=== PATIENT | female | born 1990 ===

== ENCOUNTER 2021-06-25 16:32 | Emergency (ER) | payer OTHER, SELFPAY ==
[2021-06-25] VITALS (9 sets, daily range): BP systolic 107–132; BP diastolic 53–74; PULSE 61–75; RESP 16–18; TEMP 36.6–37.2; O2SAT 100; BMI 26.1
[2021-06-25 18:35] LABS: Alanine Aminotransferase 8 U/L (0-31); Albumin Level 4.4 g/dL (3.5-5.0); Alkaline Phosphatase 80 U/L (39-117); Anion Gap 10 (12-20); Aspartate Amino Transferase 15 U/L (5-31); Bilirubin Total 0.6 mg/dL (0.0-1.0); Blood Urea Nitrogen 9 mg/dL (9-16); Calcium 9.3 mg/dL (8.4-10.2); Carbon Dioxide 26 mmol/L (22-29); Chloride 108 mmol/L (96-108); Creatinine Clr Calc Pharmacy 118.1; Estimated Glomerular Filt Rate > 60; Glucose Random 94 mg/dL (60-115); Potassium 3.9 mmol/L (3.3-5.1); Sodium 140 mmol/L (135-145); Total Protein 7.5 g/dL (6.5-8.0)
[2021-06-25 18:41] LABS: MANUAL DIFF FLAG SCAN; Monocytes Absolute Auto 0.4 X10*3/uL (0.1-1.2); Monocytes Percent Auto 9.5 % (2-11); SCAN SMEAR FLAG 1
[2021-06-25 18:43] LABS: Basophils Percent Auto 0.7 % (0-2); Eosinophils Absolute Auto 0.1 X10*3/uL (0.0-0.4); Eosinophils Percent Auto 2.2 % (0-4); Hematocrit 26.6 % (37-47); Imm Gran Abs Auto 0.01 X10*3/uL (0.00-0.03); Imm Gran Pct Auto 0.2 % (0.0-0.4); Lymphocytes Absolute Auto 1.5 X10*3/uL (1.2-4.9); Lymphocytes Percent Auto 31.7 % (20-40); Mean Corpuscular HGB Conc 25.6 g/dl (31.0-35.0); Mean Corpuscular Hemoglobin 14.9 pg (27.0-33.0); Neutrophils Absolute Auto 2.6 X10*3/uL (2.0-8.3); Neutrophils Percent Auto 55.7 % (45-73); PLT CLUMP 1; Red Blood Count 4.55 X10*6/uL (4.20-5.50); Red Cell Distribution Width 19.6 % (11.0-16.0)
[2021-06-25 18:47] LABS: Mean Corpuscular Volume 58.5 fL (80-98)
[2021-06-25 18:50] LABS: PLT ABN DIST 1
[2021-06-25 18:51] LABS: Hemoglobin 6.8 g/dl (12.0-16.0)
[2021-06-25 19:05] LABS: Platelet Count 226 X10*3/uL (160-400); SLIDE REVIEW VERIFIED; White Blood Count 4.6 X10*3/uL (4.8-10.8)
--- NOTE | 2021-06-25 19:08 | ED.GENADULT ---
HPI - General Adult General Chief complaint: General Medical Stated complaint: ?Low iron Time Seen by Provider: 06/25/21 19:08 Source: patient Mode of arrival: ambulatory Limitations: no limitations History of Present Illness HPI narrative: History of chronic iron deficiency anemia secondary to heavy menstrual bleeding history of blood transfusion in the past taking iron pills comes here for last few days been feeling very weak and dizzy with palpitation no chest pain feels short of breath on exertion no rectal bleeding Related Data Previous Rx's Medication Instructions Recorded ferrous sulfate 324 mg (65 mg 324 mg PO BID #60 tab 06/26/21 iron) tablet,delayed release Allergies Allergy/AdvReac Type Severity Reaction Status Date / Time No Known Allergies Allergy Verified 06/25/21 17:53 Review of Systems Review of Systems: Yes all other systems are reviewed and are negative [facility] Past Medical History Medical History (Updated 06/26/21 @ 00:48 by Ac Ocampo MD) Dysfunctional uterine bleeding Iron deficiency anemia Social History Social History Advance Directives: No Advance Directives Information Provided: No Physical Exam Vital Signs: Vital Signs: Last Vital Signs Temp 98.5 F 06/25/21 23:30 Pulse 68 06/25/21 23:30 Resp 18 06/25/21 23:30 BP 107/53 L 06/25/21 23:30 Pulse Ox 100 06/25/21 23:27 Body Mass Index 26.1 Appearance: Alert. Oriented X3. No acute distress. Eyes: Pallor++ ENT: Pharynx normal. Oral Mucosa moist Neck: Normal inspection. Neck supple. CVS: Normal heart rate and rhythm. Pulses normal. Respiratory: No respiratory distress. Equal air entry bilateral, no wheezing/rales/rhonchi Abdomen: Soft and nontender. Bowel sounds are present, no mass palpable, no CVA tenderness Skin: Skin warm and dry. Normal skin color. Normal skin turgor. Extremities: No lower extremity edema. No calf tenderness Neuro: Oriented X 3. Medical Decision Making MDM Narrative Medical decision making narrative: Patient with significant anemia secondary to DUB and received blood pressure in the past was given 1 unit of blood transfusion in the ER advised to follow-up with PUMPING SUPERVISOR and expansion joint finisher also advised to increase the dose of iron tablet twice daily and be more compliant to medication Lab Data Lab results reviewed: Yes I reviewed the patient's lab results. Result diagrams: 06/25/21 18:13 06/25/21 18:13 Labs: Lab Results 06/25/21 06/25/21 06/25/21 Range/Units 18:13 18:13 20:01 WBC 4.6 L (4.8-10.8) X10*3/uL RBC 4.55 (4.20-5.50) X10*6/uL Hgb 6.8 L* (12.0-16.0) g/dl Hct 26.6 L (37-47) % MCV 58.5 L (80-98) fL MCH 14.9 L (27.0-33.0) pg MCHC 25.6 L (31.0-35.0) g/dl RDW 19.6 H (11.0-16.0) % Plt Count 226 (160-400) X10*3/uL MPV TNP Immature Gran % (Auto) 0.2 (0.0-0.4) % Neut % (Auto) 55.7 (45-73) % Lymph % (Auto) 31.7 (20-40) % [place] % (Auto) 9.5 (2-11) % Eos % (Auto) 2.2 (0-4) % Baso % (Auto) 0.7 (0-2) % Lymph # (Auto) 1.5 (1.2-4.9) X10*3/uL [place] # (Auto) 0.4 (0.1-1.2) X10*3/uL Eos # (Auto) 0.1 (0.0-0.4) X10*3/uL Baso # (Auto) 0.0 (0.0-0.2) X10*3/uL Abs Immat Gran (auto) 0.01 (0.00-0.03) X10*3/uL Absolute Neuts (auto) 2.6 (2.0-8.3) X10*3/uL Absolute Nucleated RBC 0.000 (0.0-0.012) X10*3/uL Nucleated RBC % (auto) 0.0 (0.0-0.2) /100WBC Smear Tech's Comments VERIFIED Sodium 140 (135-145) mmol/L Potassium 3.9 (3.3-5.1) mmol/L Chloride 108 (96-108) mmol/L Carbon Dioxide 26 (22-29) mmol/L Anion Gap 10 L (12-20) BUN 9 (9-16) mg/dL Creatinine 0.67 (0.5-1.4) mg/dL Estim Creat Clear Calc 118.1 Estimated GFR > 60 Random Glucose 94 (60-115) mg/dL Calcium 9.3 (8.4-10.2) mg/dL Iron 14 L (30-160) mcg/dL TIBC 515 H (228-428) mcg/dL % Saturation 3 L (15-50) % Unsat Iron Binding 501 ug/dL Ferritin < 1 L (10-122) ng/mL Total Bilirubin 0.6 (0.0-1.0) mg/dL AST 15 (5-31) U/L ALT 8 (0-31) U/L Alkaline Phosphatase 80 (39-117) U/L Total Protein 7.5 (6.5-8.0) g/dL Albumin 4.4 (3.5-5.0) g/dL Blood Type O Positive Antibody Screen NEGATIVE Crossmatch See Detail Discharge Plan Discharge Clinical Impression: Severe anemia Patient Disposition: Home, Self-Care Instructions: Anemia (ED) Additional Instructions: Take your iron tablets daily As prescribed follow-up with honing machine operator and expansion joint finisher as advised Follow up with PCP [place] raudel tabletas de romana a diario Seguimiento prescrito con un ginec?logo y un hemat?logo seg?n las recomendaciones Seguimiento con PCP Prescriptions: New ferrous sulfate 324 mg (65 mg iron) tablet,delayed release (DR/EC) 324 mg PO BID Qty: 60 RF: 0 Referrals: Mariya Hudson MD [Physician] - 1 week Ajith Newell MD [Physician] - 1 week Print Language: Turkmen
[2021-06-25 19:47] LABS: Iron 14 mcg/dL (30-160); Percent Iron Saturation 3 % (15-50); Total Iron Binding Capacity 515 mcg/dL (228-428); Unsaturated Iron Binding 501 ug/dL
[2021-06-25 20:10] LABS: Ferritin < 1 ng/mL (10-122)
--- NOTE | 2021-06-25 23:38 | PC.NURSE ---
pt completed her unit of PRB cells with no reaction. infusion completed at 2230 vitals as follows. 98.5 oral, hr 68 nsr, 18 regular bp 107/53/81 left arm supine. pt lungs clear no s/s of resp distress. skin color improved. pt is awake and talking in full sentences.
[2021-06-25] MEDS: Ferrous Sulfate 324 MG TABLET.DR PO (23:51)
[2021-06-26 01:01] VITALS: BP 125/73; PULSE 69; RESP 18; TEMP 37.1; O2SAT 100
== END 2021-06-26 01:10 | disposition home or self-care (01) ==
PROVIDERS: Emergency Provider Internal Medicine
DX: D50.0 Iron deficiency anemia secondary to blood loss (chronic) (principal); N92.0 Excessive and frequent menstruation with regular cycle; Z79.899 Other long term (current) drug therapy
CPT/HCPCS: 36415; 36430; 80053; 82728; 83540; 85025; 86850; 86900; 86901; 86923; 99284; 99285; P9016

== ENCOUNTER 2021-06-28 15:17 | Outpatient (REF) | payer OTHER, SELFPAY ==
[2021-06-28 16:51] LABS: Hemoglobin 7.7 g/dl (12.0-16.0)
[2021-06-28 16:52] LABS: Hematocrit 28.4 % (37-47); Mean Corpuscular HGB Conc 27.1 g/dl (31.0-35.0); Mean Corpuscular Hemoglobin 16.7 pg (27.0-33.0); Red Blood Count 4.62 X10*6/uL (4.20-5.50)
[2021-06-28 16:55] LABS: Mean Corpuscular Volume 61.5 fL (80-98); PLT ABN DIST 1
[2021-06-28 17:15] LABS: Platelet Count 165 X10*3/uL (160-400)
[2021-06-28 17:43] LABS: HCG Quantitative < 2 mIU/mL
[2021-06-28 18:15] LABS: TSH reflex Free T4 1.73 uIU/mL (0.32-4.0)
[2021-06-29 02:12] LABS: CT PCR NOT DETECTED (Not Detect.); NG PCR NOT DETECTED (Not Detect.)
== END 2021-06-28 15:18 | disposition home or self-care (01) ==
LOC: HO.LAB 15:17
PROVIDERS: Visit Provider Obstetrics & Gynecology
DX: Z01.419 Encounter for gynecological examination (general) (routine) without abnormal findings (principal); Z11.3 Encounter for screening for infections with a predominantly sexual mode of transmission; N93.9 Abnormal uterine and vaginal bleeding, unspecified; D64.9 Anemia, unspecified
CPT/HCPCS: 36415; 84443; 84702; 85027; 87491; 87591; 88142; 99202

== ENCOUNTER 2021-07-04 16:10 | Emergency (ER) | payer OTHER, SELFPAY ==
--- NOTE | 2021-07-04 | ECG_ITS ---
Test Reason : sob Blood Pressure : / mmHG Vent. Rate : 087 BPM Atrial Rate : 087 BPM P-R Int : 164 ms QRS Dur : 090 ms QT Int : 376 ms P-R-T Axes : 051 046 036 degrees QTc Int : 452 ms Normal sinus rhythm Normal ECG No previous ECGs available Referred By: Generic ED Physician Electronically Signed By:ELIAZAR BLANC MD
--- NOTE | ~2021-07-04 | XR_ITS ---
EXAMINATION: XR CHEST CLINICAL INFORMATION: Shortness of breath. Chest tightness. COMPARISON: None TECHNIQUE: PA view of the chest was obtained. FINDINGS: Lungs are clear. No consolidation, pneumothorax, or pleural effusion. Cardiac and mediastinal contours are normal. Prominent vasculature is unremarkable. No acute osseous findings. XR/XR chest 1V IMPRESSION: Normal chest radiograph.
[2021-07-04 17:05] VITALS: BP 140/98; PULSE 98; RESP 17; TEMP 36.9; O2SAT 100; BMI 25.6
[2021-07-04 17:55] LABS: MANUAL DIFF FLAG NO
[2021-07-04 17:59] LABS: Basophils Percent Auto 0.4 % (0-2); Eosinophils Percent Auto 0.6 % (0-4); Hematocrit 30.7 % (37-47); Hemoglobin 8.5 g/dl (12.0-16.0); Imm Gran Abs Auto 0.01 X10*3/uL (0.00-0.03); Imm Gran Pct Auto 0.2 % (0.0-0.4); Lymphocytes Absolute Auto 0.5 X10*3/uL (1.2-4.9); Lymphocytes Percent Auto 10.1 % (20-40); Mean Corpuscular HGB Conc 27.7 g/dl (31.0-35.0); Mean Corpuscular Hemoglobin 17.2 pg (27.0-33.0); Mean Corpuscular Volume 62.3 fL (80-98); Monocytes Absolute Auto 0.6 X10*3/uL (0.1-1.2); Monocytes Percent Auto 11.5 % (2-11); Neutrophils Percent Auto 77.2 % (45-73); Platelet Count 183 X10*3/uL (160-400); Red Blood Count 4.93 X10*6/uL (4.20-5.50); Red Cell Distribution Width 26.7 % (11.0-16.0); White Blood Count 5.2 X10*3/uL (4.8-10.8)
[2021-07-04 18:10] LABS: Anion Gap 12 (12-20); Blood Urea Nitrogen 10 mg/dL (9-16); Calcium 9.1 mg/dL (8.4-10.2); Carbon Dioxide 22 mmol/L (22-29); Chloride 109 mmol/L (96-108); Creatinine Clr Calc Pharmacy 100.9; Estimated Glomerular Filt Rate > 60; Glucose Random 71 mg/dL (60-115); Potassium 3.3 mmol/L (3.3-5.1); Sodium 140 mmol/L (135-145)
--- NOTE | 2021-07-04 21:45 | ED.GENADULT ---
HPI - General Adult General Chief complaint: General Medical Stated complaint: reaction to second shot Time Seen by Provider: 07/04/21 21:38 Source: patient Mode of arrival: ambulatory Limitations: no limitations History of Present Illness HPI narrative: Patient comes emergency room complaining of increased weakness, anxiety like sensation, nausea, chest tightness which occurred yesterday after having her COVID shot #2. Patient states that all her symptoms resolved yesterday fairly quickly, complaining of chronic weakness However, patient states that she is known to be anemic and she feels tired at baseline. Patient has not had any chest pain, shortness of breath, no palpitations, facial paresthesias, any new symptoms since yesterday. Patient states that she feels at baseline today. Related Data Previous Rx's Medication Instructions Recorded ferrous sulfate 324 mg (65 mg 324 mg PO BID #60 tab 06/26/21 iron) tablet,delayed release desogestrel 0.15 mg-ethinyl 1 tab PO DAILY 28 Days #28 tab 06/28/21 estradiol 0.03 mg tablet (Apri) Allergies Allergy/AdvReac Type Severity Reaction Status Date / Time No Known Allergies Allergy Verified 07/04/21 17:05 Review of Systems Review of Systems: Constitutional : No Weight loss, No Fever, No Chills, No Night Sweats, No Fatigue, No Malaise ENT/Mouth : No Hearing loss, No Ear Pain, No Nasal Congestion, No Sinus Pain, No Hoarseness, No sore throat, No Rhinorrhea, No Swallowing Difficulty Eyes: No Eye Pain, No Swelling, No Redness, No Foreign Body, No Discharge, No Vision Changes Cardiovascular : No Chest Pain, No SOB, No Dyspnea on Exertion, resolved short episode of palpitations after her COVID shot, now resolved Respiratory : No Cough, No Sputum, No Wheezing, No Smoke Exposure, No Dyspnea Gastrointestinal : No Nausea, No Vomiting, No Diarrhea, No Constipation, No abdominal Pain, No Hematochezia, No Melena Genitourinary : no irregular bleeding, No Dysuria, No Urinary Frequency, No Hematuria, No Urinary Incontinence, No Urgency, No Flank Pain, No Urinary Flow Changes, No Hesitancy Musculoskeletal : No joint pain, No Myalgias, No Joint Swelling Skin : No Skin Lesions, No rash Neuro : No Weakness, No Numbness, No Paresthesias, No Loss of Consciousness, No Dizziness, No Headache Psych : No Anxiety/Panic, No Depression, No SI/HI/AH/VH, No Social Issues, Heme/Lymph: No Bruising, No Bleeding,No Lymphadenopathy Endocrine : No Polyuria, No Polydipsia, No Temperature Intolerance [facility] Past Medical History Medical History Dysfunctional uterine bleeding Iron deficiency anemia Surgical History Hx of section Tubal ligation status Family History Family History Maternal Grandfather Leukemia Social History Social History Patient Tobacco Use Status: Never used Tobacco Advance Directives: No Advance Directives Information Provided: No Patient : No Physical Exam Vital Signs: Vital Signs: Last Vital Signs Temp 98.4 F 07/04/21 17:05 Pulse 98 07/04/21 17:05 Resp 17 07/04/21 17:05 BP 140/98 H 07/04/21 17:05 Pulse Ox 100 07/04/21 17:05 Body Mass Index 25.6 Const: Other: Appearance: Alert. Oriented X3. No acute distress. Eyes: Pupils equal, round and reactive to light. ENT: Pharynx normal. Neck: Normal inspection. Neck supple. No lymph nodes noted. No crepitus CVS: Normal heart rate and rhythm. Pulses normal. Normal S1 and S2 Respiratory: No respiratory distress. Breath sounds normal. No Wheezing. No rales Abdomen: Soft and nontender. No rigidity. No distention. good BS x4 Skin: Skin warm and dry. Normal skin color. Normal skin turgor. Extremities: No lower extremity edema.No Lacerations. No Rash Neuro: Oriented X 3. No motor deficit. No sensory deficit. Moving all extermities. No slurred speech. Course Course Course Narrative: I discussed the labs with the patient, patient's hemoglobin is 8.5, higher than when she came in last week with transfusion. Wells criteria for PE score is 0 Patient likely had a vasovagal reaction versus short side effect. Patient's symptoms resolved yesterday, patient has been a baseline all day today. No new symptoms. Medical Decision Making Lab Data Result diagrams: 07/04/21 17:51 07/04/21 17:51 Labs: Lab Results 07/04/21 07/04/21 Range/Units 17:51 17:51 WBC 5.2 (4.8-10.8) X10*3/uL RBC 4.93 (4.20-5.50) X10*6/uL Hgb 8.5 L (12.0-16.0) g/dl Hct 30.7 L (37-47) % MCV 62.3 L (80-98) fL MCH 17.2 L (27.0-33.0) pg MCHC 27.7 L (31.0-35.0) g/dl RDW 26.7 H (11.0-16.0) % Plt Count 183 (160-400) X10*3/uL MPV TNP Immature Gran % (Auto) 0.2 (0.0-0.4) % Neut % (Auto) 77.2 H (45-73) % Lymph % (Auto) 10.1 L (20-40) % [place] % (Auto) 11.5 H (2-11) % Eos % (Auto) 0.6 (0-4) % Baso % (Auto) 0.4 (0-2) % Lymph # (Auto) 0.5 L (1.2-4.9) X10*3/uL [place] # (Auto) 0.6 (0.1-1.2) X10*3/uL Eos # (Auto) 0.0 (0.0-0.4) X10*3/uL Baso # (Auto) 0.0 (0.0-0.2) X10*3/uL Abs Immat Gran (auto) 0.01 (0.00-0.03) X10*3/uL Absolute Neuts (auto) 4.0 (2.0-8.3) X10*3/uL Absolute Nucleated RBC 0.000 (0.0-0.012) X10*3/uL Nucleated RBC % (auto) 0.0 (0.0-0.2) /100WBC Sodium 140 (135-145) mmol/L Potassium 3.3 (3.3-5.1) mmol/L Chloride 109 H (96-108) mmol/L Carbon Dioxide 22 (22-29) mmol/L Anion Gap 12 (12-20) BUN 10 (9-16) mg/dL Creatinine 0.72 (0.5-1.4) mg/dL Estim Creat Clear Calc 100.9 Estimated GFR > 60 Random Glucose 71 (60-115) mg/dL Calcium 9.1 (8.4-10.2) mg/dL Discharge Plan Discharge Clinical Impression: Drug side effects Patient Disposition: Home, Self-Care Instructions: Weakness (ED), Fatigue (ED) Additional Instructions: Please follow-up with your primary care physician tomorrow. If you have any worsening or new symptoms, please return to the emergency room or call 911 Prescriptions: No Action ferrous sulfate 324 mg (65 mg iron) tablet,delayed release (DR/EC) 324 mg PO BID Qty: 60 RF: 0 desogestrel-ethinyl estradiol [Apri] 0.15-0.03 mg tablet 1 tab PO DAILY 28 Days Qty: 28 RF: 2
== END 2021-07-04 22:07 | disposition home or self-care (01) ==
PROVIDERS: Emergency Provider Emergency Medicine
DX: R53.1 Weakness (principal); R11.0 Nausea; R07.89 Other chest pain; T50.B95A Adverse effect of other viral vaccines, initial encounter; Y92.9 Unspecified place or not applicable; D50.9 Iron deficiency anemia, unspecified
CPT/HCPCS: 36415; 71045; 80048; 85025; 93005; 99283

== ENCOUNTER 2021-07-13 14:05 | Outpatient (REF) | payer OTHER, SELFPAY ==
--- NOTE | ~2021-07-13 | US_ITS ---
EXAMINATION: US PELVIS CLINICAL INFORMATION: Abnormal uterine and vaginal bleeding COMPARISON: None TECHNIQUE: Ultrasound of the pelvis is performed using both transabdominal and transvaginal transducers along with Doppler. Transvaginal imaging is performed due to inadequate visualization transabdominally. FINDINGS: The uterus is retroverted and measures 8.3 x 5 x 5.4 cm in dimension. There may be an arcuate type uterus. Endometrial thickness is normal measuring 1.4 cm. The ovaries are normal. The right ovary measures 2.9 x 1.6 x 1.6 cm. The left ovary measures 3 x 1.7 x 2.2 cm. There is a small to moderate amount of fluid in the pelvis. 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 Normal thickness endometrium. Normal-appearing ovaries.
== END 2021-07-13 14:06 | disposition home or self-care (01) ==
LOC: HO.US 14:05
PROVIDERS: Visit Provider Obstetrics & Gynecology
DX: N93.9 Abnormal uterine and vaginal bleeding, unspecified (principal)
CPT/HCPCS: 76830; 76856

== ENCOUNTER 2021-07-27 14:14 | Outpatient (REF) | payer OTHER, SELFPAY | END 2021-07-27 14:15 | disposition home or self-care (01) | LOC: HO.LAB 14:14 | PROVIDERS: Visit Provider Obstetrics & Gynecology | DX: R87.612 Low grade squamous intraepithelial lesion on cytologic smear of cervix (LGSIL) (principal); N93.9 Abnormal uterine and vaginal bleeding, unspecified; D64.9 Anemia, unspecified; Q51.810 Arcuate uterus | CPT/HCPCS: 57454; 88305; 88342; 88360; 99212 ==

== ENCOUNTER → 2021-08-09 15:27 | Outpatient (BNVA) | payer OTHER, SELFPAY | PROVIDERS: Visit Provider Obstetrics & Gynecology | DX: N87.0 Mild cervical dysplasia (principal); N93.9 Abnormal uterine and vaginal bleeding, unspecified | CPT/HCPCS: 99212 ==

== ENCOUNTER → 2021-08-28 14:09 | Outpatient (BNV) | payer OTHER, SELFPAY | PROVIDERS: Referring Provider Obstetrics & Gynecology; Visit Provider Internal Medicine Medical Oncology | DX: D50.9 Iron deficiency anemia, unspecified (principal) | CPT/HCPCS: 99203; 99213; 99214 ==

== ENCOUNTER 2021-09-05 09:24 | Emergency (ER) | payer OTHER, SELFPAY ==
[2021-09-05 09:36] VITALS: BP 123/87; PULSE 78; RESP 17; TEMP 36.6; O2SAT 100; BMI 24.0
[2021-09-05 09:56] LABS: Eosinophils Absolute Auto 0.1 X10*3/uL (0.0-0.4); Eosinophils Percent Auto 2.8 % (0-4); Hemoglobin 8.2 g/dl (12.0-16.0); Imm Gran Abs Auto 0.01 X10*3/uL (0.00-0.03); Imm Gran Pct Auto 0.3 % (0.0-0.4); MANUAL DIFF FLAG SCAN; Mean Corpuscular Volume 66.4 fL (80.0-98.0); SCAN SMEAR FLAG 1
[2021-09-05 09:58] LABS: Hematocrit 29.8 % (37.0-47.0); Lymphocytes Percent Auto 24.2 % (20-40); Mean Corpuscular HGB Conc 27.5 g/dl (31.0-35.0); Mean Corpuscular Hemoglobin 18.3 pg (27.0-33.0); Monocytes Absolute Auto 0.3 X10*3/uL (0.1-1.2); Monocytes Percent Auto 8.1 % (2-11); Neutrophils Absolute Auto 2.5 x10*3/uL (2.0-8.3); Neutrophils Percent Auto 63.6 % (45-73); Platelet Count 168 X10*3/uL (160-400); Red Blood Count 4.49 X10*6/uL (4.20-5.50); Red Cell Distribution Width 20.6 % (11.0-16.0)
[2021-09-05 09:59] LABS: PLT ABN DIST 1
[2021-09-05 10:20] LABS: Anion Gap 8 (12-20); Blood Urea Nitrogen 14 mg/dL (9-16); Calcium 8.8 mg/dL (8.4-10.2); Carbon Dioxide 25 mmol/L (22-29); Chloride 109 mmol/L (96-108); Creatinine Clr Calc Pharmacy 105.4; Estimated Glomerular Filt Rate > 60; Glucose Random 106 mg/dL (60-115); Potassium 4.5 mmol/L (3.3-5.1); Sodium 137 mmol/L (135-145)
--- NOTE | 2021-09-05 13:14 | ED_ITS ---
HPI - General Adult General Chief complaint: General Medical Stated complaint: Anemia Time Seen by Provider: 09/05/21 13:10 Source: patient and certified court interpreter Mode of arrival: ambulatory Limitations: no limitations History of Present Illness MD complaint: anemia, fatigue Onset (ago): week(s) (4) Severity: moderate Quality: dull Relieving factors: other (exertion) Exacerbating factors: none Associated symptoms: loss of appetite and malaise Treatments prior to arrival: other (has seen hematology and OBGYN fo r this) Related Data Previous Rx's Medication Instructions Recorded desogestrel 0.15 mg-ethinyl 1 tab PO DAILY 28 Days #28 tab 06/28/21 estradiol 0.03 mg tablet (Apri) L norgest/E estradiol-E estrad 1 tab PO DAILY 84 Days #84 ea 07/27/21 0.15 mg-30 mcg (84)/10 mcg(7) tabs,3mos (Seasonique) Allergies Allergy/AdvReac Type Severity Reaction Status Date / Time No Known Allergies Allergy Verified 08/28/21 14:52 Review of Systems Review of Systems: Constitutional : No Weight loss, No Fever, No Chills, pos Fatigue, No Malaise ENT/Mouth : No sore throat, No Rhinorrhea Eyes: No Eye Pain, No Swelling, No Redness Cardiovascular : No Chest Pain, No SOB, No Dyspnea on Exertion, No Orthopnea, No Edema, No Palpitations Respiratory : No Cough, No Sputum, No Wheezing Gastrointestinal : No Nausea, No Vomiting, No Diarrhea, No Constipation, No abdominal Pain, No Hematochezia, No Melena Genitourinary : No Dysuria, No Urinary Frequency, No Hematuria, pos scant dark bleeding Musculoskeletal : No joint pain, No Myalgias, No Joint Swelling Skin : No Skin Lesions, No rash Neuro : pos Weakness, No Numbness, No Dizziness, No Headache Psych : No Anxiety/Panic, No Depression Heme/Lymph: No Bruising, No Bleeding,No Lymphadenopathy Endocrine : No Polyuria, No Polydipsia All other systems reviewed and are negative PMFSH Past Medical History Attestation statement: The following information was validated with the patient. Medical History Dysfunctional uterine bleeding Iron deficiency anemia Surgical History Hx of section Tubal ligation status Family History Family History Maternal Grandfather Leukemia Social History Social History Alcohol intake: current Alcohol intake frequency: a few times a month Patient Tobacco Use Status: Never used Tobacco Substance Use Type: Marijuana Advance Directives: No Advance Directives Information Provided: Yes Patient : No Physical Exam Vital Signs: Vital Signs: Last Vital Signs Temp 97.9 F 09/05/21 13:27 Pulse 75 09/05/21 13:27 Resp 18 09/05/21 13:27 BP 132/68 09/05/21 13:27 Pulse Ox 100 09/05/21 13:27 BMI result Body Mass Index 24.0 Appearance: Alert. Oriented X3. No acute distress. Eyes: Pupils equal, round and reactive to light. ENT: Pharynx normal. Neck: Normal inspection. Neck supple. CVS: Normal heart rate and rhythm. Pulses normal. Respiratory: No respiratory distress. Breath sounds normal. Abdomen: Soft and non-tender. Skin: Skin warm and dry. pale skin color. Normal skin turgor. Extremities: No lower extremity edema. No calf ttp Neuro: Oriented X 3. No motor deficit. No sensory deficit. Course Course Course Narrative: cannot give IV Fe here at this time per pharmacy - H/H at her baseline won't take oral Fe will need to call her dressmaker helper Medical Decision Making MDM Narrative Medical decision making narrative: 30 yo male with hx of Fe deficiency anemia followed by OB and hematology here with c/o weakness and fatigue - at this time had appointment plan for IV dextran infusion after appointment 08/28 - at this time she has not had her appointment scheduled will need repeat H/H covid test and will discuss possible infusion here before the holiday. Lab Data Result diagrams: 09/05/21 09:50 09/05/21 09:49 Labs: Lab Results 09/05/21 09/05/21 Range/Units 09:49 09:50 WBC 4.0 L (4.8-10.8) X10*3/uL RBC 4.49 (4.20-5.50) X10*6/uL Hgb 8.2 L (12.0-16.0) g/dl Hct 29.8 L (37.0-47.0) % MCV 66.4 L (80.0-98.0) fL MCH 18.3 L (27.0-33.0) pg MCHC 27.5 L (31.0-35.0) g/dl RDW 20.6 H (11.0-16.0) % Plt Count 168 D (160-400) X10*3/uL MPV Not Reportable Immature Gran % (Auto) 0.3 (0.0-0.4) % Neut % (Auto) 63.6 (45-73) % Lymph % (Auto) 24.2 (20-40) % [place] % (Auto) 8.1 (2-11) % Eos % (Auto) 2.8 (0-4) % Baso % (Auto) 1.0 (0-2) % Lymph # (Auto) 1.0 L (1.2-4.9) X10*3/uL [place] # (Auto) 0.3 (0.1-1.2) X10*3/uL Eos # (Auto) 0.1 (0.0-0.4) X10*3/uL Baso # (Auto) 0.0 (0.0-0.2) X10*3/uL Abs Immat Gran (auto) 0.01 (0.00-0.03) X10*3/uL Absolute Neuts (auto) 2.5 (2.0-8.3) x10*3/uL Absolute Nucleated RBC 0.000 (0.0-0.012) X10*3/uL Nucleated RBC % (auto) 0.0 (0.0-0.2) /100WBC Smear Tech's Comments Not Reportable Sodium 137 (135-145) mmol/L Potassium 4.5 (3.3-5.1) mmol/L Chloride 109 H (96-108) mmol/L Carbon Dioxide 25 (22-29) mmol/L Anion Gap 8 L (12-20) BUN 14 (9-16) mg/dL Creatinine 0.68 (0.5-1.4) mg/dL Estim Creat Clear Calc 105.4 Estimated GFR > 60 Random Glucose 106 (60-115) mg/dL Calcium 8.8 D (8.4-10.2) mg/dL Discharge Plan Discharge Clinical Impression: Iron deficiency anemia Patient Disposition: Home, Self-Care Instructions: Iron Deficiency Anemia (ED) Additional Instructions: return to ED for any worsening symptoms or concerns Prescriptions: No Action desogestrel-ethinyl estradiol [Apri] 0.15-0.03 mg tablet 1 tab PO DAILY 28 Days Qty: 28 RF: 2 L norgest/e.estradiol-e.estrad [Seasonique] 0.15 mg-30 mcg (84)/10 mcg (7) tablets,dose pack,3 month 1 tab PO DAILY 84 Days Qty: 84 RF: 0 Referrals: Mariya Hudson MD [Physician] - 1 day Print Language: Vietnamese
[2021-09-05 13:27] VITALS: BP 132/68; PULSE 75; RESP 18; TEMP 36.6; O2SAT 100
[2021-09-05 14:08] LABS: COVID-19 Test Negative (Negative)
[2021-09-05 14:09] VITALS: BP 127/75; PULSE 87; RESP 16; TEMP 37; O2SAT 100
== END 2021-09-05 14:41 | disposition home or self-care (01) ==
PROVIDERS: Emergency Provider Emergency Medicine
DX: D50.9 Iron deficiency anemia, unspecified (principal); Z20.822 Contact with and (suspected) exposure to COVID-19
CPT/HCPCS: 36415; 80048; 85025; 87635; 99283; 99284

== ENCOUNTER → 2021-09-28 11:53 | Outpatient (BNVA) | payer OTHER, SELFPAY | PROVIDERS: Visit Provider Obstetrics & Gynecology | DX: N93.9 Abnormal uterine and vaginal bleeding, unspecified (principal) | CPT/HCPCS: 99212 ==

== ENCOUNTER 2021-12-13 08:06 | Outpatient (REF) | payer OTHER, SELFPAY | END 2021-12-13 08:07 | disposition home or self-care (01) | LOC: HO.MDS 08:06 | PROVIDERS: Visit Provider Internal Medicine Medical Oncology | DX: D50.9 Iron deficiency anemia, unspecified (principal) | CPT/HCPCS: 96365; 96366; J1200; J1750; Q0163 ==

== ENCOUNTER 2022-01-23 11:43 | Outpatient (REF) | payer OTHER, SELFPAY ==
--- NOTE | ~2022-01-23 | MR_ITS ---
EXAMINATION: MR BRAIN WITHOUT CONTRAST CLINICAL INFORMATION: Headaches. COMPARISON: None. TECHNIQUE: Multiplanar, multisequence imaging of the brain was performed without contrast. FINDINGS: No diffusion abnormalities are identified to suggest an acute or subacute infarct. The ventricles are normal in size. No mass effect or midline shift is seen. No brain parenchymal signal abnormality is noted. No extra-axial fluid collections are seen. The brainstem and cerebellum are normal. The gradient refocused acquisition is normal. The craniovertebral junction, marrow signal, and midline structures are normal. The major intracranial flow voids at the level of the grindstone of [place] are preserved. The dural venous sinus flow voids are maintained. The mastoid air cells are well aerated. Mild ethmoid sinus mucosal thickening noted. MR/MR head/brain wo con IMPRESSION: Normal MRI of the brain. No acute process.
== END 2022-01-23 11:44 | disposition home or self-care (01) ==
LOC: HO.MRI 11:43
PROVIDERS: Visit Provider Physician Assistant
DX: R51.9 Headache, unspecified (principal); H53.8 Other visual disturbances
CPT/HCPCS: 70551

== ENCOUNTER 2022-03-13 10:05 | Outpatient (REF) | payer OTHER, SELFPAY ==
[2022-03-13 14:24] LABS: CT PCR NOT DETECTED (Not Detect.); NG PCR NOT DETECTED (Not Detect.)
[2022-03-13 15:33] LABS: MANUAL DIFF FLAG NO
[2022-03-13 15:36] LABS: Basophils Percent Auto 0.2 % (0-2); Eosinophils Absolute Auto 0.1 X10*3/uL (0.0-0.4); Eosinophils Percent Auto 2.2 % (0-4); Hematocrit 39.3 % (37.0-47.0); Hemoglobin 13.3 g/dl (12.0-16.0); Lymphocytes Percent Auto 20.5 % (20-40); Mean Corpuscular HGB Conc 33.8 g/dl (31.0-35.0); Mean Corpuscular Hemoglobin 28.2 pg (27.0-33.0); Mean Corpuscular Volume 83.3 fL (80.0-98.0); Mean Platelet Volume 10.4 fL (9.4-12.3); Monocytes Absolute Auto 0.4 X10*3/uL (0.1-1.2); Monocytes Percent Auto 6.9 % (2-11); Neutrophils Absolute Auto 3.6 x10*3/uL (2.0-8.3); Neutrophils Percent Auto 70.2 % (45-73); Platelet Count 259 X10*3/uL (160-400); Red Blood Count 4.72 X10*6/uL (4.20-5.50); Red Cell Distribution Width 15.3 % (11.0-16.0); White Blood Count 5.1 X10*3/uL (4.8-10.8)
[2022-03-14 08:17] LABS: HBsAGNum1 0.21 S/CO (0.00-0.99); HIV AB/AG Nonreactive (Nonreactive); HIV Num 1 0.09 S/CO (0.00-0.99); Hepatitis B Surface Antigen Negative (Negative); ~HepC Num1 0.09 S/CO (0.00-0.79); ~Hepatitis C Antibody Nonreactive (Nonreactive)
[2022-03-14 08:23] LABS: Syphilis Screen Nonreactive (Nonreactive)
[2022-03-14 10:03] LABS: BV Int Neg Control Negative (Negative); BV Int Pos Control Positive (Positive)
== END 2022-03-13 10:06 | disposition home or self-care (01) ==
LOC: HO.LAB 10:05
PROVIDERS: Internal Medicine Medical Oncology; PCP Physician Assistant; Visit Provider Obstetrics & Gynecology
DX: Z11.4 Encounter for screening for human immunodeficiency virus [HIV] (principal); Z11.3 Encounter for screening for infections with a predominantly sexual mode of transmission; D64.9 Anemia, unspecified; N93.9 Abnormal uterine and vaginal bleeding, unspecified; N83.209 Unspecified ovarian cyst, unspecified side
CPT/HCPCS: 36415; 85025; 86780; 86803; 86850; 86870; 86900; 86901; 86905; 87340; 87389; 87480; 87491; 87510; 87591; 87660; 99212

== ENCOUNTER → 2022-05-03 10:14 | Outpatient (BNVA) | payer OTHER, SELFPAY | PROVIDERS: PCP Physician Assistant; Visit Provider Obstetrics & Gynecology | DX: Z32.02 Encounter for pregnancy test, result negative (principal); N83.299 Other ovarian cyst, unspecified side | CPT/HCPCS: 81025; 99212 ==

== ENCOUNTER 2022-05-25 14:12 | Outpatient (REF) | payer OTHER, SELFPAY ==
--- NOTE | ~2022-05-25 | US_ITS ---
EXAMINATION: US PELVIS CLINICAL INFORMATION: Ovarian cyst COMPARISON: Previous pelvic ultrasound June 2020 TECHNIQUE: Ultrasound of the pelvis is performed using both transabdominal and transvaginal transducers along with Doppler. Transvaginal imaging is performed due to inadequate visualization transabdominally. FINDINGS: The uterus is retroverted and retroflexed and measures 8.7 x 5.1 x 6.3 cm in dimension. No focal uterine lesion is seen. There may be arcuate configuration of the uterus. Endometrial thickness is normal measuring 1 cm. There is a small amount of fluid in the endometrial cavity. The ovaries are normal. The right ovary measures 3.5 x 2.1 x 1.9 cm. The left ovary measures 2.6 x 1.3 x 2.4 cm. There is a physiologic right ovarian cyst with daughter cyst measuring 1.5 x 2.2 x 1.9 cm. There is a small amount of fluid in the pelvis. There are prominent right-sided pelvic vessels questionable for pelvic congestion. 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 Physiologic right ovarian cyst measuring 1.5 x 2.2 x 1.9 cm and small amount of fluid in the right pelvis adjacent to the ovary. Prominent right pelvic vessels questionable for pelvic congestion.
== END 2022-05-25 14:13 | disposition home or self-care (01) ==
LOC: HO.HMGCX 14:12
PROVIDERS: PCP Physician Assistant; Visit Provider Obstetrics & Gynecology
DX: N83.299 Other ovarian cyst, unspecified side (principal)
CPT/HCPCS: 76830; 76856

== ENCOUNTER → 2022-06-12 14:29 | Outpatient (BNVA) | payer OTHER, SELFPAY | PROVIDERS: PCP Physician Assistant; Visit Provider Obstetrics & Gynecology | DX: N83.291 Other ovarian cyst, right side (principal); N94.89 Other specified conditions associated with female genital organs and menstrual cycle; Q51.810 Arcuate uterus | CPT/HCPCS: 99212 ==

== ENCOUNTER 2022-07-19 07:28 | Emergency (ER) | payer OTHER, SELFPAY ==
[2022-07-19 07:57] VITALS: BP 158/79; PULSE 84; RESP 18; TEMP 37.1; O2SAT 99; BMI 25.7
[2022-07-19 08:21] LABS: COVID-19 Test Positive (Negative); IDNOW Serial# 16C4AD1C
[2022-07-19 08:27] LABS: Strep A Nucleic Acid Negative (Negative)
[2022-07-19 08:28] LABS: Influenza A Negative (Negative); Influenza B2 Negative (Negative)
--- NOTE | 2022-07-19 08:41 | ED_ITS ---
HPI - General Adult General Chief complaint: General Medical Stated complaint: Congestion Body Aches Time Seen by Provider: 07/19/22 08:41 Source: patient Mode of arrival: ambulatory Limitations: no limitations History of Present Illness HPI narrative: Patient is a 31 year old assigned female at with a history of GERD presenting to the emergency department today with feeling generally unwell. Saul leroy states that for the last few days, she has felt generally unwell with a cough and nasal congestion. Patient denies any current dizziness, lightheadedness, abdominal pain, nausea, vomiting, fever, chills, blurry vision, double vision, loss of vision, chest pain, difficulty breathing, shortness of breath, back pain, night sweats, pain with urination, increased urinary frequency, increased urinary urgency, blood in her urine or stool, syncope or a near syncopal episode, recent trauma or falls, bowel incontinence, bladder incontinence, bowel retention, bladder retention, or any other complaints at this time. Onset (ago): day(s) Severity: mild Severity scale (1-10): 2 Relieving factors: none Exacerbating factors: none Associated symptoms: cough Treatments prior to arrival: none Related Data Previous Rx's Medication Instructions Recorded fluticasone propionate 50 1 spray intranasal BID 30 days #16 01/02/22 mcg/actuation nasal grams spray,suspension (Flonase Allergy Relief) omeprazole 20 mg capsule,delayed 20 mg PO DAILY 30 days #30 caps 02/01/22 release L norgest/E estradiol-E estrad 1 tab PO DAILY 84 days #84 ea 03/13/22 0.15 mg-30 mcg (84)/10 mcg(7) tabs,3mos (Seasonique) Allergies Allergy/AdvReac Type Severity Reaction Status Date / Time No Known Allergies Allergy Verified 06/12/22 14:33 Review of Systems Constitutional: Constitutional: Reports no additional constitutional complain ts, Denies chills, Denies fever(s) and Denies night sweats Eyes: Eyes: Reports no additional eye complaints, Denies blurry vision, Denies change in vision, Denies diplopia, Denies eye discharge, Denies loss of vision and Denies eye pain ENT: Denies dizziness and Reports nasal congestion Cardiovascular: Cardiovascular: Reports no additional cardiovascular complaints, Denies chest pain, Denies lightheadedness, Denies Loss of Consciousness and Denies dyspnea Respiratory: Respiratory: Reports no additional respiratory complaints, Reports cough and Denies dyspnea Gastrointestinal: Gastrointestinal: Reports no additional gastrointestinal complaints, Denies abdominal pain, Denies melena, Denies hematochezia, Denies change in bowel habits and Denies change in stool character Genitourinary: Genitourinary: Denies hematuria, Denies urinary frequency, Denies dysuria, Denies urinary incontinence, Denies urinary hesitancy and Denies urinary urgency Musculoskeletal: Musculoskeletal: Reports no additional musculoskeletal complaints, Denies numbness and Denies tingling Neurologic: Denies dizziness, Denies loss of vision, Denies numbness and Denies tingling Psychiatric: Psychiatric: Reports no additional psychiatric complaints Endocrine: Endocrine: Reports no additional endocrine complaints Hematologic/Lymphatic: Hematologic/Lymphatic: Reports no additional hematologic/lymphatic complaints Allergic/Immunologic: Allergic/Immunologic: Reports no additional allergic/immunologic complaints [facility] Past Medical History Attestation statement: The following information was validated with the patient. Source: old records reviewed Medical History Dysfunctional uterine bleeding Iron deficiency anemia Surgical History Hx of section Tubal ligation status Family History Family History Maternal Grandfather Leukemia Maternal Uncle Diabetes Paternal Grandmother Lupus Social History Social History Household Members: Spouse and Children Housing: Apartment Are you a primary residential care facility manager to a significant other at home: No Do you presently have visiting nurse or other home services: No Alcohol intake: never Patient Tobacco Use Status: Never used Tobacco e-Cigarette/Vaping Use: Never Used Advance Directives: No Advance Directives Information Provided: No service: No Current occupational status: employed Cognitive needs: No Hearing needs: No Vision needs: Yes (Pt wear glasses but have not seen eye doctor for three years. ) Physical Exam ED Vital Signs: Vital Signs - 24 hr 07/19/22 07:57 Temperature 98.8 F Pulse Rate 84 Respiratory Rate 18 Blood Pressure 158/79 H Pulse Oximetry 99 Oxygen Delivery Method Room Air BMI result Body Mass Index 25.7 Const General: cooperative, no acute distress, alert and awake Nutritional Appearance: well nourished Orientation/consciousness: patient oriented x3 Limitations: no limitations HENMT Head: Yes normal to inspection and Yes atraumatic Ears: hearing grossly normal bilaterally and external ears normal General nose exam: Normal external nose present, no nasal discharge noted and no epistaxis Face and sinus: Yes normal facial exam, No abrasion and No laceration Mouth: Normal oral and palatal mucosa present, no drooling and no muffled voice Eyes General: appearance normal, both eyes and all related structures Periorbital: periorbital findings normal Eyelids: Yes eyelids normal Conjunctivae: conjunctivae normal Pupils: Equal, round and reactive pupils present EOM: EOMs intact bilaterally Neck Neck: Yes normal visual inspection, Yes full ROM and Yes no lymphadenopathy Chest Chest palpation & inspection: normal inspection of the chest Resp Effort & Inspection: normal respiratory effort and able to speak in complete sentences Auscultation: clear to auscultation bilaterally Cardio Rate: regular rate Rhythm: regular rhythm GI Inspection: Yes normal to inspection Neuro General: patient oriented x3 and moves all extremities Cranial nerves: Yes Equal, round and reactive pupils present Cognition (Neuro): normal cognition Motor exam (neuro): 5/5 motor strength present throughout Sensory Exam: Normal double simultaneous stimulation for sensation Coordination: gmoner-bh-[id number] test normal Extrem General: Yes normal to inspection, Yes full ROM and Yes capillary refill normal Psych Appearance: grossly normal Mental Status: mental status grossly normal Affect: normal affect Attitude: cooperative Thought process: Normal thought process present Thought content: Normal thought content present Insight: Good insight present (Psych) Medical Decision Making [facility] Narrative Medical decision making narrative: Patient is a 31 year old assigned female at with a history of GERD presenting to the emergency department today with a cough and feeling generally unwell. Patient's physical exam was unremarkable. Patient's rapid COVID-19 test was positive. I explained my physical exam findings as well as all test results to the patient. I answered all questions asked by the patient. I stressed the importance of the patient taking her medication as prescribed. I stressed the importance of the patient following up with her primary care provider. I stressed the importance of the patient returning to the emergency department immediately if her symptoms were to worsen or if she were to develop any dizziness, shortness of breath, difficulty breathing, chest pain, blurry vision, loss of vision, nausea, vomiting, abdominal pain, fever, chills, back pain, or any other complaints. Patient verbalized agreement and understanding with this treatment plan and discharge. Medical Records Medical records reviewed: Yes I reviewed the patient's medical records. Lab Data Lab results reviewed: Yes I reviewed the patient's lab results. Labs: Lab Results 07/19/22 07/19/22 07/19/22 Range/Units 08:07 08:07 08:07 COVID-19 ([facility]) Positive A (Negative) COVID-19 Clin Com See Note Influenza Type A (CARINA) Negative (Negative) Influenza Type B (CARINA) Negative (Negative) Influenza A & B Note See Note S. pyogenes GrpA CARINA Negative (Negative) Discharge Plan Discharge Clinical Impression: COVID-19 Patient Disposition: Home, Self-Care Instructions: COVID-19 (Coronavirus Disease 2019) (ED) Additional Instructions: Follow up with your primary care provider. Return to the emergency department immediately if your symptoms worsen or if you develop any dizziness, shortness of breath, difficulty breathing, chest pain, blurry vision, loss of vision, nausea, vomiting, abdominal pain, fever, chills, back pain, or any other com plaints. Bridget un seguimiento con garcia proveedor de atenci?n primaria. Regrese al departamento de emergencias de inmediato si raudel s?ntomas empeoran o si presenta mareos, falta de aire, dificultad para respirar, dolor de pecho, visi?n borrosa, p?rdida de la visi?n, n?useas, v?mitos, dolor abdominal, fiebre, escalofr?os, dolor de espalda o cualquier otras quejas. Prescriptions: No Action fluticasone propionate [Flonase Allergy Relief] 50 mcg/actuation spray,suspension 1 spray intranasal BID 30 Days Qty: 16 2RF Rx Instructions: administer into each nostril omeprazole 20 mg capsule,delayed release(DR/EC) 20 mg PO DAILY 30 Days Qty: 30 0RF L norgest/e.estradiol-e.estrad [Seasonique] 0.15 mg-30 mcg (84)/10 mcg (7) tablets,dose pack,3 month 1 tab PO DAILY 84 Days Qty: 84 1RF Referrals: Jalen Meza PA-C [Primary Care Provider] - Stand Alone Forms: Work/School Release Print Language: [place]ican
== END 2022-07-19 09:26 | disposition home or self-care (01) ==
PROVIDERS: Emergency Provider Emergency Medicine; PCP Physician Assistant
DX: U07.1 COVID-19 (principal)
CPT/HCPCS: 36415; 87502; 87635; 87651; 99282; 99283

== ENCOUNTER 2022-09-17 09:32 | Emergency (ER) | payer OTHER, SELFPAY ==
[2022-09-17 09:40] VITALS: BP 146/98; PULSE 80; RESP 14; TEMP 36.6; O2SAT 100; BMI 21.9
[2022-09-17 10:33] LABS: COVID-19 Test Negative (Negative); IDNOW Serial# 16C4AD1C; IDNOW Serial# BCCEAD1C; Influenza A Negative (Negative); Influenza B2 Negative (Negative)
[2022-09-17 10:52] VITALS: BP 128/95; PULSE 76; RESP 16; O2SAT 100
[2022-09-17] MEDS: ondansetron HCL 4 MG/2 ML VIAL IVPUSH (11:21)
[2022-09-17] MEDS: 0.9 % Sodium Chloride 1,000 ML 999 ML IV (11:21)
[2022-09-17 11:22] VITALS: BP 139/94; BP 140/105; BP 158/105; PULSE 64; PULSE 72; PULSE 75
[2022-09-17 11:22] LABS: MANUAL DIFF FLAG NO
[2022-09-17 11:27] LABS: Appearance Urine Cloudy; Color Urine Dark Yellow; Glucose Urine UA Negative (Negative); Leukocyte Esterase Urine Negative (Negative); Nitrite Urine Negative (Negative); Specific Gravity - Urine >= 1.030 (1.005-1.025); UMIC TRIGGER UACC YES; UPreg QC Valid YES; Urine Blood Negative (Negative); Urine Ketones Trace mg/dL (Negative); Urine Protein 30 (1+) mg/dL (Neg-Trace)
[2022-09-17 11:28] LABS: Urine Pregnancy NEGATIVE (NEGATIVE)
[2022-09-17 11:31] LABS: Bacteria Urine 1+ (None Seen); WBC Urine 0-5 /HPF (0-5)
[2022-09-17 11:33] LABS: Basophils Percent Auto 0.3 % (0-2); Eosinophils Absolute Auto 0.3 X10*3/uL (0.0-0.4); Eosinophils Percent Auto 3.1 % (0-4); Hematocrit 45.1 % (37.0-47.0); Hemoglobin 14.9 g/dl (12.0-16.0); Imm Gran Abs Auto 0.02 X10*3/uL (0.00-0.03); Imm Gran Pct Auto 0.2 % (0.0-0.4); Lymphocytes Absolute Auto 0.5 X10*3/uL (1.2-4.9); Lymphocytes Percent Auto 5.2 % (20-40); Mean Corpuscular Hemoglobin 27.9 pg (27.0-33.0); Mean Corpuscular Volume 84.3 fL (80.0-98.0); Monocytes Absolute Auto 0.6 X10*3/uL (0.1-1.2); Neutrophils Absolute Auto 7.3 x10*3/uL (2.0-8.3); Neutrophils Percent Auto 84.2 % (45-73); Platelet Count 232 X10*3/uL (160-400); Red Blood Count 5.35 X10*6/uL (4.20-5.50); Red Cell Distribution Width 13.2 % (11.0-16.0); White Blood Count 8.7 X10*3/uL (4.8-10.8)
--- NOTE | 2022-09-17 11:38 | ED.GENADULT ---
HPI - General Adult General Chief complaint: Upper Respiratory Symptoms Stated complaint: flu symptons chest heavy Time Seen by Provider: 09/17/22 10:09 Source: patient Mode of arrival: ambulatory Limitations: language barrier ( Zambian-speaking medical records director utilized) History of Present Illness HPI narrative: patient presents to emergency department for multiple complaints. She states that yesterday she became ill with cough, body aches, fatigue, nasal congestion. Today patient experiencing intermittent dizziness, headaches, nausea. She vomited once and was experiencing chest tightness at the time of vomiting. Currently is without any chest tightness. denies any known sick contacts. Denies fevers or chills. Denies abdominal pain, dysuria, urinary frequency, pelvic pain vaginal discharge. Denies possibility of , reports last menstrual period 1 month ago. She does report a history of anemia, she is concerned about possibility of low blood counts, she denies any sources of bleeding. Related Data Previous Rx's Medication Instructions Recorded fluticasone propionate 50 1 spray intranasal BID 30 days #16 01/02/22 mcg/actuation nasal grams spray,suspension (Flonase Allergy Relief) omeprazole 20 mg capsule,delayed 20 mg PO DAILY 30 days #30 caps 02/01/22 release L norgest/E estradiol-E estrad 1 tab PO DAILY 84 days #84 ea 03/13/22 0.15 mg-30 mcg (84)/10 mcg(7) tabs,3mos (Seasonique) ondansetron 4 mg disintegrating 4 mg PO Q8H PRN nausea and 09/17/22 tablet vomiting #10 tabs Allergies Allergy/AdvReac Type Severity Reaction Status Date / Time No Known Allergies Allergy Verified 06/12/22 14:33 Review of Systems Review of Systems: Constitutional: no fever. no chills. No weakness. Positive fatigue. ENT/ Mouth: No Ear Pain, positive Nasal Congestion, no sore throat, No Rhinorrhea, No Swallowing Difficulty Skin: No rash or itching. Cardiovascular: No chest pain. No palpitations. Respiratory: No shortness of breath. Positive cough. No sputum production. Gastrointestinal: positive nausea. positive vomiting. No diarrhea. No abdominal pain. Genitourinary: No burning micturition. No urinary frequency. Neurologic: positive headache. positive dizziness. No syncope. No numbness or tingling in the extremities. Musculoskeletal: positive myalgias.. No back pain. No joint pain or stiffness. Yes all other systems are reviewed and are negative [facility] Past Medical History Attestation statement: The following information was validated with the patient. Source: old records reviewed Medical History Dysfunctional uterine bleeding Iron deficiency anemia Surgical History Hx of section Tubal ligation status Family History Family History Maternal Grandfather Leukemia Maternal Uncle Diabetes Paternal Grandmother Lupus Social History Social History Household Members: Spouse and Children Housing: Apartment Are you a primary hospice care sales consultant to a significant other at home: No Do you presently have visiting nurse or other home services: No Alcohol intake: never Patient Tobacco Use Status: Never used Tobacco Smoked in Last 30 Days: No e-Cigarette/Vaping Use: Never Used Use of substances other than those prescribed or required for medical reasons: No Advance Directives: No Advance Directives Information Provided: No Patient : No service: No Current occupational status: employed Cognitive needs: No Hearing needs: No Vision needs: Yes (Pt wear glasses but have not seen eye doctor for three years. ) Physical Exam ED Vital Signs: Vital Signs - 24 hr 09/17/22 09:40 09/17/22 10:52 09/17/22 11:22 Temperature 97.8 F Pulse Rate 80 76 72 Respiratory Rate 14 16 Blood Pressure 146/98 H 128/95 H 158/105 H Pulse Oximetry 100 100 Oxygen Delivery Method Room Air Room Air 09/17/22 11:22 09/17/22 11:22 09/17/22 12:43 Temperature 98.0 F Pulse Rate 64 75 64 Respiratory Rate 16 Blood Pressure 139/94 H 140/105 H 130/81 Pulse Oximetry 100 Oxygen Delivery Method Room Air BMI result Body Mass Index 21.9 Appearance: Alert.?Oriented to person, place and time. No acute distress.?Normal affect. Eyes: Pupils equal, round and reactive to light.? ENT: Pharynx normal.?? TM normal bilaterally Neck: Normal inspection.? Neck supple.?? no cervical lymphadenopathy. No nuchal rigidity. CVS: Heart sounds normal. Normal heart rate and rhythm.? Pulses normal.?? Respiratory: No respiratory distress.? Lung sounds clear to auscultation bilaterally?? Abdomen: Soft and non-tender. Normoactive bowel sounds. Skin: Skin warm and dry.? Normal skin color.? Extremities: No lower extremity edema.? No calf ttp? Neuro: Moves all extremities spontaneously. Sensation intact bilaterally. No focal neuro deficits. Ambulates with normal steady gait. Course Reevaluation(s) Reevaluation #1: COVID- 19 and influenza testing are negative. Patient reports improvement symptoms after receiving Tylenol, IV fluids, and Zofran. Reports feeling well enough to return home. At this time suspect a viral syndrome. CBC reveals no leukocytosis, no anemia. CMP is unremarkable. Urinalysis without evidence of infection, urine test is negative. She is ambulatory with a steady gait, no focal neurological deficits. Tolerating oral intake. Will discharge patient home with prescription for ondansetron. Discussed worrisome signs and symptoms to return back to the emergency department for. All questions answered. She departed in stable condition. Time: 13:58 Medications Administered Discontinued Medications Generic Name Dose Route Start Last Admin Trade Name Freq PRN Reason Stop Dose Admin Acetaminophen 975 mg 09/17/22 11:44 09/17/22 11:50 Acetaminophen 325 Mg Tablet PO 09/17/22 11:45 975 mg ONCE ONE Administration Sodium Chloride 1,000 mls @ 999 mls/hr 09/17/22 11:15 09/17/22 12:22 Ns IV 09/17/22 12:15 Infused .Q1H1M PALAK Infusion Ondansetron HCl 4 mg 09/17/22 11:07 09/17/22 11:21 Ondansetron Hcl 4 Mg/2 Ml Vial IVPUSH 09/17/22 11:08 4 mg ONCE ONE Administration Medical Decision Making Medical Decision Making [facility] Narrative: Patient is a 31-year-old female with no reported past medical history, presenting for evaluation of upper respiratory symptoms. Well-appearing, nontoxic, afebrile, no tachycardia or tachypnea/hypoxia. Physical examination is reassuring, no focal neurological deficits, no nuchal rigidity, no images, does not appear consistent with meningitis. Speaking clear full sentences, ambulatory with steady gait. Will obtain viral testing, CBC to evaluate for leukocytosis/ anemia, CMP and lipase to evaluate for abnormal electrolytes /abnormal renal function/ abnormal hepatic/biliary function, and Urinalysis. patient to receive 1L normal saline fluid extremity ondansetron IV for nausea, acetaminophen for headache. Lab Data MDM Lab Attestation statement: I reviewed the patient's lab results. Result Diagrams: 09/17/22 11:16 09/17/22 11:16 Labs: Lab Results 09/17/22 09/17/22 09/17/22 Range/Units 10:10 10:10 11:16 WBC 8.7 (4.8-10.8) X10*3/uL RBC 5.35 (4.20-5.50) X10*6/uL Hgb 14.9 (12.0-16.0) g/dl Hct 45.1 (37.0-47.0) % MCV 84.3 (80.0-98.0) fL MCH 27.9 (27.0-33.0) pg MCHC 33.0 (31.0-35.0) g/dl RDW 13.2 (11.0-16.0) % Plt Count 232 (160-400) X10*3/uL MPV 11.0 (9.4-12.3) fL Immature Gran % (Auto) 0.2 (0.0-0.4) % Neut % (Auto) 84.2 H (45-73) % Lymph % (Auto) 5.2 L (20-40) % [place] % (Auto) 7.0 (2-11) % Eos % (Auto) 3.1 (0-4) % Baso % (Auto) 0.3 (0-2) % Lymph # (Auto) 0.5 L (1.2-4.9) X10*3/uL [place] # (Auto) 0.6 (0.1-1.2) X10*3/uL Eos # (Auto) 0.3 (0.0-0.4) X10*3/uL Baso # (Auto) 0.0 (0.0-0.2) X10*3/uL Abs Immat Gran (auto) 0.02 (0.00-0.03) X10*3/uL Absolute Neuts (auto) 7.3 (2.0-8.3) x10*3/uL Absolute Nucleated RBC 0.000 (0.0-0.012) X10*3/uL Nucleated RBC % (auto) 0.0 (0.0-0.2) /100WBC Sodium (135-145) mmol/L Potassium (3.3-5.1) mmol/L Chloride (96-108) mmol/L Carbon Dioxide (22-29) mmol/L Anion Gap (12-20) BUN (9-16) mg/dL Creatinine (0.5-1.4) mg/dL Estim Creat Clear Calc Estimated GFR Random Glucose (60-115) mg/dL Calcium (8.4-10.2) mg/dL Total Bilirubin (0.0-1.0) mg/dL AST (5-31) U/L ALT (0-31) U/L Alkaline Phosphatase (39-117) U/L Total Protein (6.5-8.0) g/dL Albumin (3.5-5.0) g/dL Lipase (8-78) U/L Urine Color Urine Appearance Urine pH (5.0-9.0) Ur Specific [place] (1.005-1.025) Urine Protein (Neg-Trace) mg/dL Urine Glucose (UA) (Negative) mg/dL Urine Ketones (Negative) mg/dL Urine Blood (Negative) Urine Nitrite (Negative) Ur Leukocyte Esterase (Negative) Urine RBC (0-2) /HPF Urine WBC (0-5) /HPF Ur Squamous Epith Cells (0-2) /HPF Urine Bacteria (None Seen) Hyaline Casts (0-2) /LPF Urine Test (NEGATIVE) COVID-19 ([facility]) Negative (Negative) COVID-19 Clin Com See Note Influenza Type A (CARINA) Negative (Negative) Influenza Type B (CARINA) Negative (Negative) Influenza A & B Note See Note 09/17/22 09/17/22 09/17/22 Range/Units 11:16 11:16 11:16 WBC (4.8-10.8) X10*3/uL RBC (4.20-5.50) X10*6/uL Hgb (12.0-16.0) g/dl Hct (37.0-47.0) % MCV (80.0-98.0) fL MCH (27.0-33.0) pg MCHC (31.0-35.0) g/dl RDW (11.0-16.0) % Plt Count (160-400) X10*3/uL MPV (9.4-12.3) fL Immature Gran % (Auto) (0.0-0.4) % Neut % (Auto) (45-73) % Lymph % (Auto) (20-40) % [place] % (Auto) (2-11) % Eos % (Auto) (0-4) % Baso % (Auto) (0-2) % Lymph # (Auto) (1.2-4.9) X10*3/uL [place] # (Auto) (0.1-1.2) X10*3/uL Eos # (Auto) (0.0-0.4) X10*3/uL Baso # (Auto) (0.0-0.2) X10*3/uL Abs Immat Gran (auto) (0.00-0.03) X10*3/uL Absolute Neuts (auto) (2.0-8.3) x10*3/uL Absolute Nucleated RBC (0.0-0.012) X10*3/uL Nucleated RBC % (auto) (0.0-0.2) /100WBC Sodium 138 (135-145) mmol/L Potassium 4.3 (3.3-5.1) mmol/L Chloride 106 (96-108) mmol/L Carbon Dioxide 24 (22-29) mmol/L Anion Gap 12 (12-20) BUN 14 (9-16) mg/dL Creatinine 0.69 (0.5-1.4) mg/dL Estim Creat Clear Calc 115.9 Estimated GFR > 60 Random Glucose 102 (60-115) mg/dL Calcium 9.4 (8.4-10.2) mg/dL Total Bilirubin 0.6 (0.0-1.0) mg/dL AST 20 (5-31) U/L ALT 11 (0-31) U/L Alkaline Phosphatase 86 D (39-117) U/L Total Protein 7.9 (6.5-8.0) g/dL Albumin 4.6 (3.5-5.0) g/dL Lipase 30 (8-78) U/L Urine Color Dark Yellow Urine Appearance Cloudy Urine pH 5.0 (5.0-9.0) Ur Specific [place] >= 1.030 H (1.005-1.025) Urine Protein 30 (1+) H (Neg-Trace) mg/dL Urine Glucose (UA) Negative (Negative) mg/dL Urine Ketones Trace (Negative) mg/dL Urine Blood Negative (Negative) Urine Nitrite Negative (Negative) Ur Leukocyte Esterase Negative (Negative) Urine RBC 3-5 H (0-2) /HPF Urine WBC 0-5 (0-5) /HPF Ur Squamous Epith Cells 6-10 (0-2) /HPF Urine Bacteria 1+ (None Seen) Hyaline Casts 3-5 (0-2) /LPF Urine Test NEGATIVE (NEGATIVE) COVID-19 ([facility]) (Negative) COVID-19 Clin Com Influenza Type A (CARINA) (Negative) Influenza Type B (CARINA) (Negative) Influenza A & B Note Discharge Plan Discharge Clinical Impression: Acute viral syndrome Patient Disposition: Home, Self-Care Instructions: Viral Syndrome (ED) Additional Instructions: as discussed, please be sure to rest throughout today, drink plenty of fluids, use Zofran as needed for nausea. Follow a bland diet with slow progression as tolerated. Introduce a bland diet including crackers, bananas, rice, soup, toast, and boiled vegetables. This may progress to plain baked or boiled chicken or turkey. Avoid dairy products or foods high in fat or grease. You may return to the emergency department with any new or worsening symptoms or concerns. Follow-up with your primary care provider within the next 2-3 days for persistent symptoms. Prescriptions: New ondansetron 4 mg tablet,disintegrating 4 mg PO Q8H PRN (Reason: nausea and vomiting) Qty: 10 0RF No Action fluticasone propionate [Flonase Allergy Relief] 50 mcg/actuation spray,suspension 1 spray intranasal BID 30 Days Qty: 16 2RF Rx Instructions: administer into each nostril omeprazole 20 mg capsule,delayed release(DR/EC) 20 mg PO DAILY 30 Days Qty: 30 0RF L norgest/e.estradiol-e.estrad [Seasonique] 0.15 mg-30 mcg (84)/10 mcg (7) tablets,dose pack,3 month 1 tab PO DAILY 84 Days Qty: 84 1RF Referrals: Jalen Meza PA-C [Primary Care Provider] - Stand Alone Forms: Work/School Release Interventions: ED Discharge Assessment Last Done: 09/17/22 14:29 Discharge Date/Time: 09/17/22 14:29
[2022-09-17] MEDS: Acetaminophen 325 MG TABLET 975 MG PO (11:50)
[2022-09-17 11:54] LABS: Alanine Aminotransferase 11 U/L (0-31); Albumin Level 4.6 g/dL (3.5-5.0); Alkaline Phosphatase 86 U/L (39-117); Anion Gap 12 (12-20); Aspartate Amino Transferase 20 U/L (5-31); Bilirubin Total 0.6 mg/dL (0.0-1.0); Blood Urea Nitrogen 14 mg/dL (9-16); Calcium 9.4 mg/dL (8.4-10.2); Carbon Dioxide 24 mmol/L (22-29); Chloride 106 mmol/L (96-108); Creatinine Clr Calc Pharmacy 115.9; Estimated Glomerular Filt Rate > 60; Glucose Random 102 mg/dL (60-115); Lipase 30 U/L (8-78); Potassium 4.3 mmol/L (3.3-5.1); Sodium 138 mmol/L (135-145); Total Protein 7.9 g/dL (6.5-8.0)
[2022-09-17 12:43] VITALS: BP 130/81; PULSE 64; RESP 16; TEMP 36.7; O2SAT 100
== END 2022-09-17 14:29 | disposition home or self-care (01) ==
PROVIDERS: Nurse Practitioner Family; Emergency Provider Student in an Organized Health Care Education/Training Program; PCP Physician Assistant
DX: B34.9 Viral infection, unspecified (principal); Z20.822 Contact with and (suspected) exposure to COVID-19
CPT/HCPCS: 36415; 80053; 81001; 81025; 83690; 85025; 87502; 87635; 96361; 96374; 99284; 99285; J2405

== ENCOUNTER 2023-03-04 15:08 | Outpatient (REF) | payer OTHER, SELFPAY ==
[2023-03-05 07:07] LABS: CT PCR NOT DETECTED (Not Detect.); NG PCR NOT DETECTED (Not Detect.)
[2023-03-05 11:19] LABS: BV Int Neg Control Negative (Negative); BV Int Pos Control Positive (Positive)
[2023-03-08 00:54] LABS: HPV mRNA E6/E7 rflx Not Detected (Not Detected)
== END 2023-03-04 15:09 | disposition home or self-care (01) ==
LOC: HO.LNP 15:08
PROVIDERS: PCP Physician Assistant; Visit Provider Advanced Practice Midwife
DX: Z01.419 Encounter for gynecological examination (general) (routine) without abnormal findings (principal); Z11.51 Encounter for screening for human papillomavirus (HPV); N87.0 Mild cervical dysplasia; D50.8 Other iron deficiency anemias
CPT/HCPCS: 0353U; 87480; 87510; 87624; 87660; 88142

== ENCOUNTER 2023-07-04 09:27 | Outpatient (AMB) | payer OTHER, SELFPAY ==
--- NOTE | 2023-07-04 10:22 | A.OFFVIS_ITS ---
Intake Vital Signs 07/04/23 10:23 Height 5 ft 6 in Weight 143 lb BMI 23.1 BP 106/70 Intake Visit Reasons: irrgular bleeding/Anemia Intake Note: Jerry needs to get lab work done. is still having abnormal bleeding. Sponge Diver Required: Yes Sponge Diver Language: Swiss Information Interpreted: non-clinical & clinical Boning Room Worker: Boning Room Worker Present ([place]) Allergies No Known Allergies Allergy (Verified 07/04/23 10:27) Medication List - Last Reconciled 07/04/23 by Tereza Unger CNM No Known Home Meds Is last menstrual period known: Yes Last menstrual period: 06/24/23 Post menopausal: No HPI irrgular bleeding/Anemia HPI Details Patient is presenting because she wants to talk about her heavy periods her periods are not actually irregular. She thinks she might be anemic she was anemic in the past and received iron transfusions last year that made her feel very good and she would like those again. She was seen in February and amongst the many issues and concerns discussion of menses occurred and a CBC and TSH was ordered and she was to return after to discuss. She had never went for the lab work and she said she went to the lab today and they told her the only thing that was in the system was STD screens. She would like to get her CBC checked and be referred for more transfusions of iron if she needs it. She tells me her last period was June 24 that lasted for 5 days on questioning she says she does have them heavier than they used to be and she does have clots she says she gets them monthly they are not actually irregular. I suggested that also I would order an ultrasound and then we can have a visit after to discuss all of the findings and if her periods are getting heavier and she is feeling weak and like she is getting anemic again that we should discuss something like a Mirena IUD to lessen the amount of bleeding. She said that she is not interested in that because she is actually planning to be go be seen at [facility] reproductive endocrinology for insemination because she wants to have another baby. She has had tubal ligation in the past. She has a girlfriend and they want to have a baby. Patient is not interested in an exam today. [facility] Medical History Dysfunctional uterine bleeding Iron deficiency anemia Surgical History Hx of section Tubal ligation status Family History Maternal Grandfather Leukemia Maternal Uncle Diabetes Paternal Grandmother Lupus Social History Household Members: Spouse and Children Housing: Apartment Are you a primary career guidance technician to a significant other at home: No Do you presently have visiting nurse or other home services: No Alcohol intake: never Patient Tobacco Use Status: Never used Tobacco e-Cigarette/Vaping Use: Never Used service: No Current occupational status: employed Cognitive needs: No Hearing needs: No Vision needs: Yes (Pt wear glasses but have not seen eye doctor for three years. ) Female Reproductive History Menstrual Age of Menarche: 13 Duration of menses: 3-5 days Date of last menstrual period: 06/24/23 control method: none Total pregnancies: 3 Full term: 3 Number of Living Children: 3 Physical Exam Vital Signs: Last Vital Signs BP 106/70 07/04/23 10:23 BMI result Body Mass Index 23.1 Results Reviewed Results Reviewed: Name: Belkis Mcduffie Age/Sex: 32/F Attending: Tereza Unger CNM : 1990 Submitted by: Tereza Unger CNM Copies to: Jalen Meza PA-C MR #: [id number] Status: DEP REF Collected: 03/04/23 Location: [facility] Received: 03/06/23 Interpretation Unsatisfactory. Obscuring mucus. HPV mRNA E6/E7: NOT DETECTED This assay detects E6/E7 viral messenger RNA (mRNA) from 14 high-risk HPV types (16, 18, 31, 33, 35, 39, 45, 51, 52, 56, 58, 59, 66, 68) HPV testing performed by [facility], [place], [place]. See reference laboratory pion of the EMR for entire report. Clinical Information LMP: 02/15/23 Previous PAP test: 06/2021, MADISON I Material Received ThinPrep-Cervical Copies To Jalen Meza PA-C [address] [place] [address] [address] [place] [address] Tereza Unger [address] [place] [address] Electronically Signed By: TIFFANIE Parker ([facility]) 03/27/23 1144 The Pap Test is a screening procedure with the inherent possibility of both false negative and false positive results. Results should be interpreted in the context of historic and current clinical findings. Reliabili ty of the Pap Test is enhanced by performing the test on a regular repetitive basis. Patient: Belkis Mcduffie Age/Sex: 32/F MR#: [id number] Page 1 of 1 Assessment & Plan Assessment & Plan (1) Hx of iron deficiency anemia: Comment: Patient never went for labs that were ordered 03/04/2023 CBC and TSH being reordered today to have visit afterwards to discuss all. Code(s): Z86.2 - Personal history of diseases of the blood and blood-forming organs and certain disorders involving the immune mechanism (2) Fatigue: Code(s): R53.83 - Other fatigue (3) Dysplasia of cervix, low grade (MADISON 1): Comment: 03/04/2023 Pap is unsatisfactory needs repeat. Code(s): N87.0 - Mild cervical dysplasia (4) Arcuate uterus: Comment: Patient states she is seeking infertility consultation at [facility] and will be having complete evaluation there and is hoping for insemination. Ultrasound being ordered today to assess for fibroids or other issues will review at follow-up visit. Code(s): Q51.810 - Arcuate uterus Plan Patient is presenting because she wants to talk about her heavy periods her periods are not actually irregular. She thinks she might be anemic she was anemic in the past and received iron transfusions last year that made her feel very good and she would like those again. She was seen in February and amongst the many issues and concerns discussion of menses occurred and a CBC and TSH was ordered and she was to return after to discuss. She had never went for the lab work and she said she went to the lab today and they told her the only thing that was in the system was STD screens. She would like to get her CBC checked and be referred for more transfusions of iron if she needs it. She tells me her last period was June 24 that lasted for 5 days on questioning she says she does have them heavier than they used to be and she does have clots she says she gets them monthly they are not actually irregular. I suggested that also I would order an ultrasound and then we can have a visit after to discuss all of the findings and if her periods are getting heavier and she is feeling weak and like she is getting anemic again that we should discuss something like a Mirena IUD to lessen the amount of bleeding. She said that she is not interested in that because she is actually planning to be go be seen at [facility] reproductive endocrinology for insemination because she wants to have another baby. She has had tubal ligation in the past. She has a girlfriend and they want to have a baby. Note patient's last Pap smear in February was unsatisfactory and she was supposed to have returned for repeat Pap smear she has a history of MADISON 1. Additionally in her chart mention of arcuate uterus was found will reassess after ultrasound and do her Pap at the next visit Orders: Orders Complete Blood Count no Diff Today R53.83 - Other fatigue, Z86.2 - Personal history of diseases of the blood and blood-forming organs and certain disorders involving the immune mechanism Thyroid Stimulating Hormone Today R53.83 - Other fatigue, Z86.2 - Personal history of diseases of the blood and blood-forming organs and certain disorders involving the immune mechanism US pelvic and transvaginal Today R53.83 - Other fatigue, Z86.2 - Personal history of diseases of the blood and blood-forming organs and certain disorders involving the immune mechanism Coding Level of Care Code Est Pt Level 3 (84319) Diagnoses Hx of iron deficiency anemia Z86.2 Fatigue R53.83 Dysplasia of cervix, low grade (MADISON 1) N87.0 Arcuate uterus Q51.810
[2023-07-04 10:23] VITALS: BP 106/70; BMI 23.1
== END 2023-07-04 12:24 | disposition home or self-care (01) ==
PROVIDERS: PCP Physician Assistant; Visit Provider Advanced Practice Midwife
DX: Z86.2 Personal history of diseases of the blood and blood-forming organs and certain disorders involving the immune mechanism (principal); R53.83 Other fatigue; N87.0 Mild cervical dysplasia; Q51.810 Arcuate uterus
CPT/HCPCS: 99213

== ENCOUNTER → 2023-07-04 09:27 | Outpatient (BNVA) | payer OTHER, SELFPAY | PROVIDERS: PCP Physician Assistant; Visit Provider Advanced Practice Midwife | DX: N87.0 Mild cervical dysplasia (principal); R53.83 Other fatigue; Q51.810 Arcuate uterus; Z86.2 Personal history of diseases of the blood and blood-forming organs and certain disorders involving the immune mechanism | CPT/HCPCS: 99212 ==

== ENCOUNTER 2023-07-12 07:55 | Outpatient (REF) | payer OTHER, SELFPAY ==
[2023-07-12 08:18] LABS: Hematocrit 29.9 % (37.0-47.0); Hemoglobin 8.5 g/dl (12.0-16.0); Mean Corpuscular HGB Conc 28.4 g/dl (31.0-35.0); Mean Corpuscular Hemoglobin 18.7 pg (27.0-33.0); Mean Corpuscular Volume 65.9 fL (80.0-98.0); Platelet Count 212 X10*3/uL (160-400); Red Blood Count 4.54 X10*6/uL (4.20-5.50); Red Cell Distribution Width 16.1 % (11.0-16.0); White Blood Count 5.1 X10*3/uL (4.8-10.8)
[2023-07-12 09:02] LABS: HBsAGNum1 0.36 S/CO (0.00-0.99); HIV AB/AG Nonreactive (Nonreactive); HIV Num 1 0.05 S/CO (0.00-0.99); Hepatitis B Surface Antigen Negative (Negative); ~HepC Num1 0.09 S/CO (0.00-0.79); ~Hepatitis C Antibody Nonreactive (Nonreactive)
[2023-07-12 09:09] LABS: Thyroid Stimulating Hormone 2.69 uIU/mL (0.32-4.0)
[2023-07-12 09:12] LABS: Syphilis Screen Nonreactive (Nonreactive)
== END 2023-07-12 07:56 | disposition home or self-care (01) ==
LOC: HO.LAB 07:55
PROVIDERS: PCP Physician Assistant; Visit Provider Advanced Practice Midwife
DX: N87.0 Mild cervical dysplasia (principal); D50.9 Iron deficiency anemia, unspecified; R53.83 Other fatigue; Z86.2 Personal history of diseases of the blood and blood-forming organs and certain disorders involving the immune mechanism; Z11.3 Encounter for screening for infections with a predominantly sexual mode of transmission
CPT/HCPCS: 36415; 84443; 85027; 86780; 86803; 87340; 87389

== ENCOUNTER 2023-08-13 11:01 | Outpatient (REF) | payer OTHER, SELFPAY | END 2023-08-13 11:02 | disposition home or self-care (01) | LOC: HO.MDS 11:01 | PROVIDERS: Visit Provider Internal Medicine Medical Oncology | DX: D50.8 Other iron deficiency anemias (principal) | CPT/HCPCS: 96365; J1756 ==

== ENCOUNTER 2023-08-21 13:02 | Outpatient (REF) | payer OTHER, SELFPAY | END 2023-08-21 13:03 | disposition home or self-care (01) | LOC: HO.MDS 13:02 | PROVIDERS: Visit Provider Internal Medicine Medical Oncology | DX: D50.8 Other iron deficiency anemias (principal) | CPT/HCPCS: 96365; J1756 ==

== ENCOUNTER 2023-08-26 14:17 | Outpatient (AMB) | payer OTHER, SELFPAY ==
--- NOTE | 2023-08-26 14:25 | MHC.OFFVIS ---
Intake Vital Signs 08/26/23 14:32 Height 5 ft 4 in Weight 143 lb 4.807 oz BMI 24.6 BP 112/64 Intake Visit Reasons: LABS Assistant General Manager Required: Yes Assistant General Manager Language: Management Development Specialist Name: Jennifer KEE Information Interpreted: non-clinical & clinical Accompanied by: Self / Same As Patient Allergies No Known Allergies Allergy (Verified 08/26/23 14:32) HPI HPI Comments History of Present Illness Details The patient is presenting for follow-up to discuss the results of her abnormal uterine bleeding workup done by Radha Unger CNM and options of treatment. The following workup was done.: H&H= 8.9/31, TSH within normal Last Pap smear was unsatisfactory, HPV negative Pelvic ultrasound showed the following: IMPRESSION: Probable arcuate-type uterus. Physiologic right ovarian cyst measuring 1.5 x 2.2 x 1.9 cm and small amount of fluid in the right pelvis adjacent to the ovary. Prominent right pelvic vessels questionable for pelvic congestion. [facility] Medical History Dysfunctional uterine bleeding Iron deficiency anemia Surgical History Hx of section Tubal ligation status Family History Maternal Grandfather Leukemia Maternal Uncle Diabetes Paternal Grandmother Lupus Social History Household Members: Spouse and Children Housing: Apartment Are you a primary college and career counselor to a significant other at home: No Do you presently have visiting nurse or other home services: No Alcohol intake: never Patient Tobacco Use Status: Never used Tobacco e-Cigarette/Vaping Use: Never Used service: No Current occupational status: employed Cognitive needs: No Hearing needs: No Vision needs: Yes (Pt wear glasses but have not seen eye doctor for three years. ) Female Reproductive History Menstrual Age of Menarche: 13 Review of Systems Const All systems reviewed & are unremarkable except as noted in HPI and below Physical Exam Chest Chest palpation & inspection: normal inspection of the chest Breast/axilla inspection: normal inspection of the breasts General: Yes no CVA tenderness External Female Exam: normal external appearance and normal appearance of the urethra Speculum Exam - Vagina: normal appearance of the vagina, normal palpation, no lesions and no masses Speculum Exam - Cervix: normal appearance of the cervix, normal palpation, no lesions, no masses and nontender Bimanual exam- vagina & uterus: normal bimanual exam, normal palpation, uterine size normal, normal palpation, uterine shape normal, No Cervical tenderness present and non-tender Bimanual Exam- Adnexa, other: normal adnexae Back/Spine/Pelvis Back: no CVA tenderness Assessment & Plan Assessment & Plan (1) Abnormal uterine bleeding (AUB): Comment: With anemia Code(s): N93.9 - Abnormal uterine and vaginal bleeding, unspecified Plan: The patient is an iron transfusion with Hematology. Discussed with the patient the results of the work up done and options of treatment including Lysteda, control pills, Mirena IUD, endometrial ablation and hysterectomy. All pros, cons, risks and benefits if each option was discussed with the patient and the patient decided to go ahead with Mirena IUD so a more detailed discussion about it was conducted including mechanism of action, risks (uterine perforation, infection, injury to bladder, bowel, displacement, and others) benefits (hypo menorrhea, amenorrhea, ...). GC/CT were taken and the patient was instructed to The patient was instructed to schedule Mirena IUD insertion on day 1-5 of next cycle . (2) Unsatisfactory cervical cytology smear: Code(s): R87.615 - Unsatisfactory cytologic smear of cervix Plan: Pap repeated Coding Level of Care Code Est Pt Level 3 (62684) Diagnoses Abnormal uterine bleeding (AUB) N93.9 Unsatisfactory cervical cytology smear R87.615
[2023-08-26 14:32] VITALS: BP 112/64; BMI 24.6
== END 2023-08-26 16:11 | disposition home or self-care (01) ==
PROVIDERS: PCP Physician Assistant; Visit Provider Obstetrics & Gynecology
DX: N93.9 Abnormal uterine and vaginal bleeding, unspecified (principal); R87.615 Unsatisfactory cytologic smear of cervix
CPT/HCPCS: 99213

== ENCOUNTER 2023-08-26 14:17 | Outpatient (REF) | payer OTHER, SELFPAY ==
[2023-08-27 05:05] LABS: CT PCR NOT DETECTED (Not Detect.); NG PCR NOT DETECTED (Not Detect.)
== END 2023-08-26 14:18 | disposition home or self-care (01) ==
LOC: HO.LNP 14:17
PROVIDERS: PCP Physician Assistant; Visit Provider Obstetrics & Gynecology
DX: R87.615 Unsatisfactory cytologic smear of cervix (principal); N93.9 Abnormal uterine and vaginal bleeding, unspecified
CPT/HCPCS: 0353U; 88142; 99212

== ENCOUNTER 2023-08-28 13:35 | Outpatient (REF) | payer OTHER, SELFPAY | END 2023-08-28 13:36 | disposition home or self-care (01) | LOC: HO.MDS 13:35 | PROVIDERS: Visit Provider Internal Medicine Medical Oncology | DX: D50.8 Other iron deficiency anemias (principal) | CPT/HCPCS: 96365; J1756 ==

== ENCOUNTER 2023-09-04 13:03 | Outpatient (REF) | payer OTHER, SELFPAY | END 2023-09-04 13:04 | disposition home or self-care (01) | LOC: HO.MDS 13:03 | PROVIDERS: Visit Provider Internal Medicine Medical Oncology | DX: D50.8 Other iron deficiency anemias (principal) | CPT/HCPCS: 96365; J1756 ==

== ENCOUNTER 2023-09-11 14:56 | Outpatient (REF) | payer OTHER, SELFPAY | END 2023-09-11 14:57 | disposition home or self-care (01) | LOC: HO.MDS 14:56 | PROVIDERS: Visit Provider Internal Medicine Medical Oncology | DX: D50.9 Iron deficiency anemia, unspecified (principal) | CPT/HCPCS: 96365; J1756 ==

== ENCOUNTER 2023-09-12 11:00 | Outpatient (AMB) | payer OTHER, SELFPAY ==
--- NOTE | 2023-09-12 11:08 | MHC.OFFVIS ---
Intake Vital Signs 09/12/23 11:17 Height 5 ft 4 in Weight 143 lb 4.807 oz BMI 24.6 BP 116/68 Intake Visit Reasons: IUD Insertion/per Jennifer Flight Physician Required: Yes Flight Physician Language: Wire Fence Erector Name: Jennifer KEE Information Interpreted: non-clinical & clinical Van Loader: Van Loader Present (Jennifer KEE) Accompanied by: Self / Same As Patient Allergies No Known Allergies Allergy (Verified 09/12/23 11:18) Is last menstrual period known: Yes Last menstrual period: 09/11/23 HPI HPI Comments History of Present Illness Details Patient is here for an IUD insertion. See procedure comments. PFSH Medical History Dysfunctional uterine bleeding Iron deficiency anemia Surgical History Hx of section Tubal ligation status Family History Maternal Grandfather Leukemia Maternal Uncle Diabetes Paternal Grandmother Lupus Social History Household Members: Spouse and Children Housing: Apartment Are you a primary pet care worker to a significant other at home: No Do you presently have visiting nurse or other home services: No Alcohol intake: never Patient Tobacco Use Status: Never used Tobacco e-Cigarette/Vaping Use: Never Used service: No Current occupational status: employed Cognitive needs: No Hearing needs: No Vision needs: Yes (Pt wear glasses but have not seen eye doctor for three years. ) Female Reproductive History Menstrual Age of Menarche: 13 Date of last menstrual period: 09/11/23 control method: progestin IUCD (Mirena 09/12/23) Physical Exam Vital Signs: Last Vital Signs BP 116/68 09/12/23 11:17 BMI result Body Mass Index 24.6 Office Procedures IUD Insert/Removal Details 84142-YSH Insertion Procedure code (CPT) selection complete Contraception Insert/Removal Details Details: The patient is here today for a IUD insertion. She was counseled on the side effects including: menstrual cycle changes, pain, infection, bleeding, or expulsion. Risks of injury to the vagina, cervix, uterus, tubes, ovaries, bowel, bladder, and any adjacent tissue, resulting in nerve damage, scarring, and pain. Risks complications for the procedure that may require other test including ultrasounds, Xray, CT or MRI scan, surgery, anesthesia, blood transfusion. A urine test was completed and was negative. She was consented for the IUD insertion and has signed the consent form. All questions were answered. IUD Insertion: The patient was placed in the dorsal lithotomy position and a sterile speculum was inserted. The procedure was completed under aseptic technique. The cervix was cleansed with a Betadine solution x 3 swabs. A single toothed tenaculum was applied to the cervix for stabilization, and the uterus was sounded to 7cm. The device was inserted and released with a gentle motion. Bleeding from the tenaculum sites and the procedure were minimal. The strings were trimmed to 3cm. All of the equipment was removed and the bimanual was normal, no tip was palpable at the cervical os. The patient tolerated the procedure well and left the office in good condition. Post IUD Insertion Care: There may be some post insertion bleeding for several days that is usually light and can turn to a light brown or pink in color. Mild cramping may occur. Nothing in the vagina including: tampons, douching or intimacy for several days. You may take an over the counter mild analgesia like Tylenol or Advil (if no allergies), per the manufacturers recommendations on dosing and frequency. Follow the directions completely. Call the office if any: fever (over 100.4), flu like symptoms, abdominal pain, worsening cramping not resolved with over the counter medications, foul smelling vaginal odor, signs of infected appearing discharge, or heavy bleeding. Use a condom for a back up method if indicated for 7 days. Always use a condom for STI prevention; IUD's are not protective against STD's. Return to the office in 4-6 weeks for IUD recheck. This note is constructed using voice recognition software. While every effort has been made to ensure accuracy, industrial relations director errors may have been included. 43963 - Insertion Office Meds Mirena 21 mcg/24 hours (8 yrs) 52 mg intrauterine device Performing Provider: Beverly Beck CNM Performing Location: [facility] Administered by: Jennifer Grande CMA on 09/12/23 12:13 Dose Route Admin Location Dispensed Lot Number Expiration Date [employer] Ground Operations Supervisor 1 device intrauterine hmc 1 device [id number] 10/16/25 08715-911-95 [employer] Results AMB Test Urine AMB Test Urine Negative Last Edit by Jennifer Grande CMA on 09/12/23 12:13 Assessment & Plan Assessment & Plan (1) Encounter for insertion of mirena IUD: Code(s): Z30.430 - Encounter for insertion of intrauterine contraceptive device Plan See procedure note. Orders: Orders AMB HCG Urine Test Today Z32.02 - Encounter for test, result negative AMB IUD Insertion/Removal - Practice Supplied Today Z30.430 - Encounter for insertion of intrauterine contraceptive device Coding Level of Care Code Procedure Only Diagnoses Encounter for insertion of mirena IUD Z30.430 CPT Codes Details - CPT: 97138-KXM Insertion ([id number]) Details - Contraception: 88456 - Insertion ([id number])
[2023-09-12 11:17] VITALS: BP 116/68; BMI 24.6
== END 2023-09-12 12:12 | disposition home or self-care (01) ==
LOC: HO.HWS 11:00
PROVIDERS: PCP Physician Assistant; Visit Provider Advanced Practice Midwife
DX: Z30.430 Encounter for insertion of intrauterine contraceptive device (principal)
CPT/HCPCS: 58300

== ENCOUNTER → 2023-09-12 11:00 | Outpatient (BNVA) | payer OTHER, SELFPAY | PROVIDERS: PCP Physician Assistant; Visit Provider Advanced Practice Midwife | DX: Z30.430 Encounter for insertion of intrauterine contraceptive device (principal) | CPT/HCPCS: 58300; 81025; J7298 ==

== ENCOUNTER 2023-11-28 15:10 | Outpatient (AMB) | payer OTHER, SELFPAY ==
--- NOTE | 2023-11-28 15:18 | A.OFFVIS_ITS ---
Intake Vital Signs 11/28/23 15:20 Height 5 ft 4 in Weight 143 lb 4.807 oz BMI 24.6 BP 110/68 Intake Visit Reasons: IUD Check Intern Retail Required: Yes Intern Retail Language: Commercial Leasing Agent Name: Jennifer KEE Information Interpreted: non-clinical & clinical Middle School Principal: Middle School Principal Present (Jennifer KEE) Accompanied by: Self / Same As Patient Allergies No Known Allergies Allergy (Verified 11/28/23 15:22) HPI HPI Comments History of Present Illness Details The patient is presenting for IUD check after 1 st period following IUD insertion. The patient has no complaints periods are normal, not painful, and flow is normal. [facility] Medical History Dysfunctional uterine bleeding Iron deficiency anemia Surgical History Hx of section Tubal ligation status Family History Maternal Grandfather Leukemia Maternal Uncle Diabetes Paternal Grandmother Lupus Social History Household Members: Spouse and Children Housing: Apartment Are you a primary acute care registered nurse to a significant other at home: No Do you presently have visiting nurse or other home services: No Alcohol intake: never Patient Tobacco Use Status: Never used Tobacco e-Cigarette/Vaping Use: Never Used service: No Current occupational status: employed Cognitive needs: No Hearing needs: No Vision needs: Yes (Pt wear glasses but have not seen eye doctor for three years. ) Female Reproductive History Menstrual Age of Menarche: 13 Review of Systems Const All systems reviewed & are unremarkable except as noted in HPI and below Physical Exam Vital Signs: Last Vital Signs BP 110/68 11/28/23 15:20 BMI result Body Mass Index 24.6 General: Yes no CVA tenderness External Female Exam: normal external appearance and normal appearance of the urethra Speculum Exam - Vagina: normal appearance of the vagina, normal palpation, no lesions and no masses Speculum Exam - Cervix: normal appearance of the cervix, normal palpation, no lesions, no masses, nontender and Other cervical findings present (IUD thread in place) Bimanual exam- vagina & uterus: normal bimanual exam, normal palpation, uterine size normal, normal palpation, uterine shape normal, No Cervical tenderness present and non-tender Bimanual Exam- Adnexa, other: normal adnexae Back/Spine/Pelvis Back: no CVA tenderness Results AMB Test Urine AMB Test Urine Negative Last Edit by Jennifer Grande CMA on 15:36 Assessment & Plan Assessment & Plan (1) IUD check up: Code(s): Z30.431 - Encounter for routine checking of intrauterine contraceptive device Plan: UPT done in the office was negative. CBC ordered. Discussed with the patient the finding on physical exam, IUD string in place, the patient was reassured. Instructions given to patient to call in case of temperature above 100.4, severe cramping/pelvic pain, abnormal discharge or abnormal uterine bleeding or if she misses her. Otherwise follow-up at her annual exam appointment. All questions answered, the patient verbalized understanding. Orders: Orders AMB HCG Urine Test Today Z32.02 - Encounter for test, result negative Complete Blood Count no Diff Today D50.9 - Iron deficiency anemia, unspecified Coding Level of Care Code Est Pt Level 3 (09258) Diagnoses IUD check up Z30.431
[2023-11-28 15:20] VITALS: BP 110/68; BMI 24.6
== END 2023-11-28 15:37 | disposition home or self-care (01) ==
PROVIDERS: PCP Physician Assistant; Visit Provider Obstetrics & Gynecology
DX: Z30.431 Encounter for routine checking of intrauterine contraceptive device (principal); Z32.02 Encounter for pregnancy test, result negative
CPT/HCPCS: 99213

== ENCOUNTER 2023-11-28 15:10 | Outpatient (REF) | payer OTHER, SELFPAY ==
[2023-11-28 17:42] LABS: Hematocrit 40.3 % (37.0-47.0); Hemoglobin 13.2 g/dl (12.0-16.0); Mean Corpuscular HGB Conc 32.8 g/dl (31.0-35.0); Mean Corpuscular Hemoglobin 25.3 pg (27.0-33.0); Mean Corpuscular Volume 77.2 fL (80.0-98.0); Mean Platelet Volume 10.9 fL (9.4-12.3); Platelet Count 237 X10*3/uL (160-400); Red Blood Count 5.22 X10*6/uL (4.20-5.50); Red Cell Distribution Width 15.4 % (11.0-16.0); White Blood Count 4.2 X10*3/uL (4.8-10.8)
== END 2023-11-28 15:11 | disposition home or self-care (01) ==
LOC: HO.LAB 15:10
PROVIDERS: PCP Physician Assistant; Visit Provider Obstetrics & Gynecology
DX: D50.9 Iron deficiency anemia, unspecified (principal); Z30.431 Encounter for routine checking of intrauterine contraceptive device; Z32.02 Encounter for pregnancy test, result negative
CPT/HCPCS: 36415; 81025; 85027; 99212

== ENCOUNTER 2024-03-11 09:45 | Outpatient (AMB) | payer OTHER, SELFPAY ==
[2024-03-11 09:58] VITALS: BP 108/68; BMI 25.1
--- NOTE | 2024-03-11 09:58 | A.OFFVIS_ITS ---
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 No complaints. Last Pap/HPV was negative in 09/07 [facility] Medical History Dysfunctional uterine bleeding Iron deficiency anemia Surgical History Hx of section Tubal ligation status Family History Maternal Grandfather Leukemia Maternal Uncle Diabetes Paternal Grandmother Lupus Social History Household Members: Spouse and Children Housing: Apartment Are you a primary certified social workers in health care to a significant other at home: No Do you presently have visiting nurse or other home services: No Alcohol intake: never Patient Tobacco Use Status: Never used Tobacco e-Cigarette/Vaping Use: Never Used service: No Current occupational status: employed Cognitive needs: No Hearing needs: No Vision needs: Yes (Pt wear glasses but have not seen eye doctor for three years. ) Female Reproductive History Menstrual Age of Menarche: 13 Total pregnancies: 3 Full term: 3 Number of Living Children: 3 Date of last pap smear: 08/27/23 Review of Systems Const All systems reviewed & are unremarkable except as noted in HPI and below Card Reports as per HPI Resp Reports as per HPI GI Reports as per HPI and Reports no additional complaints Reports as per HPI Physical Exam Vital Signs: Last Vital Signs BP 108/68 03/11/24 09:58 BMI result Body Mass Index 25.1 Const General: cooperative, healthy appearing and comfortable Chest Chest palpation & inspection: normal inspection of the chest and normal palpation of entire chest wall Breast/axilla inspection: normal inspection of the breasts and normal inspection of the axillae Breast/axilla palpation: normal palpation of the breasts, normal palpation of the axillae and no axillary lymphadenopathy Resp Effort & Inspection: normal respiratory effort Auscultation: clear to auscultation bilaterally Percussion: percussion normal Cardio Palpation: normal PMI Rate: regular rate Rhythm: regular rhythm Heart sounds: no murmurs and no rubs Peripheral pulses: Peripheral pulses 2+ throughout GI Inspection: Yes normal to inspection Palpation (GI): Soft to palpation, nontender, no guarding, not rigid and No hepatosplenomegaly present Percussion: Yes normal to percussion Auscultation: normal bowel sounds Rectal Exam - Female: deferred General: Yes bladder normal to palpation External Female Exam: No lesion Speculum Exam - Vagina: normal appearance of the vagina, normal palpation, normal vaginal discharge and not erythematous Speculum Exam - Cervix: normal appearance of the cervix, normal palpation and Other cervical findings present (IUD string seen) Bimanual exam- vagina & uterus: normal bimanual exam, normal palpation, uterine size normal, bladder normal to palpation, consistency normal and normal palpation Bimanual Exam- Adnexa, other: normal adnexae, no masses and no tenderness Assessment & Plan Assessment & Plan (1) Well woman exam: Code(s): Z01.419 - Encounter for gynecological examination (general) (routine) without abnormal findings Category: Medical Plan: Cotesting not indicated this year. Counseled the patient about the recommended dietary allowance of 1000 mg of Calcium & 600 IU of vitamin D. The patient was instructed to perform monthly self-breast exams and to schedule an annual exam in a year; All questions answered and the patient verbalized understanding. Instructed the patient to schedule annual exam in a year Coding Level of Care Code Est Pt Prev Care [id number]([id number]) Diagnoses Well woman exam Z01.419
== END 2024-03-11 10:17 | disposition home or self-care (01) ==
PROVIDERS: PCP Physician Assistant; Visit Provider Obstetrics & Gynecology
DX: Z01.419 Encounter for gynecological examination (general) (routine) without abnormal findings (principal)
CPT/HCPCS: 99395

== ENCOUNTER → 2024-03-11 09:45 | Outpatient (BNVA) | payer OTHER, SELFPAY | PROVIDERS: PCP Physician Assistant; Visit Provider Obstetrics & Gynecology | DX: Z01.419 Encounter for gynecological examination (general) (routine) without abnormal findings (principal) | CPT/HCPCS: 99395 ==

== ENCOUNTER 2024-06-03 11:11 | Emergency (ER) | payer MEDICAID, SELFPAY ==
--- NOTE | ~2024-06-03 | CT_ITS ---
EXAMINATION: CT HEAD WITHOUT CONTRAST CLINICAL INFORMATION: Headache, hypertension, dizziness COMPARISON: MRI brain 01/23/2022 TECHNIQUE: Contiguous axial imaging was performed from the skull base to vertex without intravenous administration of contrast. This CT examination was performed using dose optimization techniques as appropriate, variously including the following: *Automated exposure control *Adjustment of mA and/or kV according to patient size (this includes techniques or standardized protocols for targeted exams where dose is matched to indication/reason for exam; i.e. extremities or head) *Use of iterative reconstruction technique DLP: 627 mGy-cm FINDINGS: There is no evidence of acute intracranial hemorrhage or edematous territorial infarction. Dumont-white matter differentiation appears preserved. The ventricles are normal in morphology and size. No evidence for obstructive hydrocephalus. No abnormal mass effect or midline shift. No extra-axial fluid collections. No acute soft tissue or osseous abnormalities. The mastoid air cells and visualized paranasal sinuses are clear. CT/CT head/brain wo IV con IMPRESSION: No acute intracranial pathology. Electronically signed by: Shabbir Guaman MD 06/03/2024 03:17 PM EDT
[2024-06-03 11:38] VITALS: BP 173/116; PULSE 61; RESP 18; TEMP 36.6; O2SAT 100; BMI 24.5
--- NOTE | 2024-06-03 11:43 | ED.GENADULT ---
HPI - General Adult General Chief complaint: General Medical Stated complaint: Dizzy Time Seen by Provider: 06/03/24 12:29 Source: patient, old records reviewed and orthodontist Mode of arrival: ambulatory Limitations: no limitations History of Present Illness ED Provider: ANDREI HICKS narrative: 33 yo female with PMH of anemia, GERD, migraines, here with c/o having headache starting yesterday R side of head with n/v and feeling dizzy. She has had this before in the past. Hx of high blood pressure in the past was on medications but PCP took her off. No head trauma, fevers, neck pain, not on thinners. Did stop vomiting and feels hungry a little bit. She does not take daily migraine medications. MRI in 2021 for headaches was normal. Pain throbbing R side of head today MD complaint: migraine Onset (ago): day(s) (1) Location: head Radiation: non-radiation Severity: moderate Quality: other (throbbing) Pain Consistency: intermittent Relieving factors: none Exacerbating factors: other Associated symptoms: nausea/vomiting Treatments prior to arrival: other (nausea medication unsure of name) Related Data Home Medications ?Medication ?Instructions ?Recorded ?Confirmed levonorgestrel 21 mcg/24 hr (up to intrauterine 11/28/23 8 years) 52 mg intrauterine device (Mirena) Previous Rx's ?Medication ?Instructions ?Recorded cyclobenzaprine 10 mg tablet 10 mg PO BEDTIME 10 days #10 tabs 04/01/24 cyclobenzaprine 10 mg tablet 10 mg PO TID PRN muscle spasm #20 06/03/24 tabs ondansetron 4 mg disintegrating 4 mg PO Q8H PRN nausea and 06/03/24 tablet vomiting #20 tabs Allergies Allergy/AdvReac Type Severity Reaction Status Date / Time No Known Allergies Allergy Verified 06/03/24 11:42 Review of Systems Review of Systems: Constitutional : No Fever, No Chills, No Fatigue ENT/Mouth : No sore throat, No Rhinorrhea Eyes: No Eye Pain, No Swelling, No Redness Cardiovascular : No Chest Pain, No SOB, No Dyspnea on Exertion Respiratory : No Cough, No Sputum Gastrointestinal : pos Nausea, No Vomiting, No Diarrhea, No abdominal Pain Genitourinary : No Dysuria, No Urinary Frequency, No Hematuria, Musculoskeletal : No joint pain, No Myalgias, No Joint Swelling Skin : No Skin Lesions, No rash Neuro : No Weakness, No Numbness, No Dizziness, positive Headache Psych : No Anxiety/Panic, No Depression All other systems reviewed and are negative [facility] Past Medical History Attestation statement: The following information was validated with the patient. Source: old records reviewed Medical History Dysfunctional uterine bleeding Iron deficiency anemia Surgical History Hx of section Tubal ligation status Family History Family History Maternal Grandfather Leukemia Maternal Uncle Diabetes Paternal Grandmother Lupus Social History Social History Household Members: Spouse and Children Housing: Apartment Are you a primary healthcare applications analyst to a significant other at home: No Do you presently have visiting nurse or other home services: No Alcohol intake: never Patient Tobacco Use Status: Never used Tobacco e-Cigarette/Vaping Use: Never Used Advance Directives: No Advance Directives Information Provided: No Patient : No service: No Current occupational status: employed Cognitive needs: No Hearing needs: No Vision needs: Yes (Pt wear glasses but have not seen eye doctor for three years. ) Physical Exam ED Vital Signs: Vital Signs - 24 hr 06/03/24 11:38 06/03/24 12:00 06/03/24 15:05 Temperature 97.8 F Pulse Rate 61 63 Respiratory Rate 18 Blood Pressure 173/116 H 160/118 H 143/94 H Pulse Oximetry 100 99 Oxygen Delivery Method Room Air Room Air BMI result Body Mass Index 24.5 Appearance: Alert. Oriented X3. No acute distress. Eyes: Pupils equal, round and reactive to light. ENT: Pharynx normal. Neck: Normal inspection. Neck supple. no meningeal signs CVS: Normal heart rate and rhythm. Pulses normal. Respiratory: No respiratory distress. Breath sounds normal. Abdomen: Soft and non-tender. Skin: Skin warm and dry. Normal skin color. Normal skin turgor. Extremities: No lower extremity edema. No calf ttp Neuro: Oriented X 3. No motor deficit. No sensory deficit. NIH Stroke Scale Internal: Initial- Upon Arrival Time: 11:46 Level of Consciousness: Alert Level of Consciousness Questions: Answers both questions correctly Level of Consciousness Commands: Performs both tasks correctly Best Gaze: Normal Visual: No visual loss Facial Palsy: Normal Motor Arm (Right): No drift Motor Arm (Left): No drift Motor Leg (Right): No drift Motor Leg (Left): No drift Limb Ataxia: Absent Sensory: Normal Best Language: No aphasia Dysarthia: Normal Extinction and Inattention: No abnormality Score: 0 Course Course Course Narrative: This is a rapid medical exam performed by Cathi Burr NP: Additional HPI, ROS, PE not included below will be deferred to primary provider. Patient is a 33-year-old female with history of iron deficiency anemia requiring transfusions in the past, GERD presenting to the ED with complaint of severe headache, dizziness, and nausea/vomiting since this morning. Hypertensive in triage, reports history of same but is not on BP medications. NIHSS 0. Appears pale. Plan: EKG, labs, CT head, UA Medications Administered Discontinued Medications Generic Name Dose Route Start Last Admin Trade Name Freq PRN Reason Stop Dose Admin Diphenhydramine HCl 25 mg 06/03/24 13:15 06/03/24 13:34 Diphenhydramine Hcl 50 Mg/Ml Vial IVPUSH 06/03/24 13:16 25 mg ONCE ONE Administration Sodium Chloride 1,000 mls @ 999 mls/hr 06/03/24 13:15 06/03/24 14:54 Ns IV 06/03/24 14:15 Infused .Q1H1M ONE Infusion Ketorolac Tromethamine 15 mg 06/03/24 13:15 06/03/24 13:34 Ketorolac Tromethamine 15 Mg/Ml Vial IVPUSH 06/03/24 13:16 15 mg ONCE ONE Administration Metoclopramide HCl 10 mg 06/03/24 13:15 06/03/24 13:34 Metoclopramide Hcl 10 Mg/2 Ml Vial IVPUSH 06/03/24 13:16 10 mg ONCE ONE Administration Medical Decision Making Medical Decision Making [facility] Narrative: 33 yo female with PMH of anemia, GERD, migraines, here with c/o typical migraine but with associated dizziness and nausea has had this in the past - no focal deficits, no fevers, not on thinners. She denies any trauma to the head. Neuro intact, no fevers, no meningeal signs at this time will obtain labs, start on IV migraine cocktail. CT head ordered from triage but hx of same in past with negative MRI. She has no acute onset doubt SAH no meningeal signs doubt JOINT SEALER infection. BP is up but the patient is in pain could be related to pain Differential Diagnosis Differential Diagnoses: The differential diagnosis associated with the presentation includes migraine, tension headache, HTN Admission/Observation Consideration of admission/observation: Escalation of care including admission/observation considered normal work up BP down feels much better stable for DC Lab Data MDM Lab Attestation statement: I reviewed the patient's lab results. 06/03/24 12:09 06/03/24 12:09 Labs: Lab Results 06/03/24 Range/Units 12:09 WBC 11.6 H (4.8-10.8) X10*3/uL RBC 5.46 (4.20-5.50) X10*6/uL Hgb 15.4 (12.0-16.0) g/dl Hct 45.0 (37.0-47.0) % MCV 82.4 (80.0-98.0) fL MCH 28.2 (27.0-33.0) pg MCHC 34.2 (31.0-35.0) g/dl RDW 13.7 (11.0-16.0) % Plt Count 297 D (160-400) X10*3/uL MPV 10.9 (9.4-12.3) fL Immature Gran % (Auto) 0.6 H (0.0-0.4) % Neut % (Auto) 83.9 H (45-73) % Lymph % (Auto) 8.4 L (20-40) % Gibson % (Auto) 6.2 (2-11) % Eos % (Auto) 0.7 (0-4) % Baso % (Auto) 0.2 (0-2) % Lymph # (Auto) 1.0 L (1.2-4.9) X10*3/uL Gibson # (Auto) 0.7 (0.1-1.2) X10*3/uL Eos # (Auto) 0.1 (0.0-0.4) X10*3/uL Baso # (Auto) 0.0 (0.0-0.2) X10*3/uL Abs Immat Gran (auto) 0.07 H (0.00-0.03) X10*3/uL Absolute Neuts (auto) 9.7 H (2.0-8.3) x10*3/uL Absolute Nucleated RBC 0.000 (0.0-0.012) X10*3/uL Nucleated RBC % (auto) 0.0 (0.0-0.2) /100WBC Sodium 141 (135-145) mmol/L Potassium 3.6 (3.3-5.1) mmol/L Chloride 106 (96-108) mmol/L Carbon Dioxide 29 (22-29) mmol/L Anion Gap 10 L (12-20) BUN 13 (9-16) mg/dL Creatinine 0.82 (0.5-1.4) mg/dL Estim Creat Clear Calc 85.0 Estimated GFR > 60 Random Glucose 109 (60-115) mg/dL Calcium 9.7 (8.4-10.2) mg/dL Magnesium 2.0 (1.6-2.6) mg/dL Total Bilirubin 0.7 (0.0-1.0) mg/dL AST 18 (5-31) U/L ALT 10 (0-31) U/L Alkaline Phosphatase 80 (39-117) U/L Total Protein 8.5 H (6.5-8.0) g/dL Albumin 4.9 (3.5-5.0) g/dL Beta HCG, Quant < 2 mIU/mL Urine Color Straw Urine Appearance Clear Urine pH 6.0 (5.0-9.0) Ur Specific Wendel 1.015 (1.005-1.025) Urine Protein Negative (Neg-Trace) mg/dL Urine Glucose (UA) Negative (Negative) mg/dL Urine Ketones Negative (Negative) mg/dL Urine Blood Trace (Negative) Urine Nitrite Negative (Negative) Ur Leukocyte Esterase Negative (Negative) Urine RBC 0-2 (0-2) /HPF Urine WBC 0-5 (0-5) /HPF Ur Squamous Epith Cells 0-2 (0-2) /HPF Urine Bacteria Trace (None Seen) Hyaline Casts 0-2 (0-2) /LPF Influenza Type A (PCR) NEGATIVE (Negative) Influenza Type B (PCR) NEGATIVE (Negative) RSV RNA Qual (PCR) NEGATIVE (Negative) SARS-CoV-2 RNA (RT-PCR) NEGATIVE (Negative) S. pyogenes GrpA CARINA Negative (Negative) Independent Interpretation I performed an independent interpretation of an: CT Scan (normal ) Radiology Impression Discussion of test interpretation with radiology: I have reviewed the radiologist's reading. External Record Review External record reviewed: Outpatient record and Prior outpatient radiology Prescription Management I considered prescription management with: Other Discharge Plan Discharge Clinical Impression: Migraine Qualifiers: Migraine type: unspecified Status migrainosus presence: without status migrainosus Intractability: not intractable Qualified Code(s): G43.909 - Migraine, unspecified, not intractable, without status migrainosus Patient Disposition: Home, Self-Care Instructions: Migraine Headache (ED) Additional Instructions: labs and CT scan reassuring at this time no acute findings on work up return for worsening symptoms, pain fevers, confusion or any other concerns. repeat blood pressure with your doctor tomorrow Prescriptions: New cyclobenzaprine 10 mg tablet 10 mg PO TID PRN (Reason: muscle spasm) Qty: 20 0RF ondansetron 4 mg tablet,disintegrating 4 mg PO Q8H PRN (Reason: nausea and vomiting) Qty: 20 0RF No Action cyclobenzaprine 10 mg tablet 10 mg PO BEDTIME 10 Days Qty: 10 0RF Mirena 21 mcg/24 hours (8 yrs) 52 mg intrauterine device intrauterine Stand Alone Forms: Work/School Release Print Language: Sami
--- NOTE | 2024-06-03 11:44 | ECG_ITS ---
Test Reason : DIZZY Blood Pressure : / mmHG Vent. Rate : 059 BPM Atrial Rate : 059 BPM P-R Int : 172 ms QRS Dur : 100 ms QT Int : 412 ms P-R-T Axes : 022 040 024 degrees QTc Int : 407 ms Sinus bradycardia Minimal voltage criteria for LVH, may be normal variant ( Sokolow-Camilo ) Borderline ECG When compared with ECG of 04-JUL-2021 17:59, Heart rate has decreased Referred By: Keira Burr Electronically Signed By:HONG GANN
[2024-06-03 12:00] VITALS: BP 160/118; PULSE 63; O2SAT 99
[2024-06-03 12:13] LABS: MANUAL DIFF FLAG NO
[2024-06-03 12:15] LABS: Basophils Percent Auto 0.2 % (0-2); Eosinophils Absolute Auto 0.1 X10*3/uL (0.0-0.4); Eosinophils Percent Auto 0.7 % (0-4); Hemoglobin 15.4 g/dl (12.0-16.0); Imm Gran Abs Auto 0.07 X10*3/uL (0.00-0.03); Imm Gran Pct Auto 0.6 % (0.0-0.4); Lymphocytes Percent Auto 8.4 % (20-40); Mean Corpuscular HGB Conc 34.2 g/dl (31.0-35.0); Mean Corpuscular Hemoglobin 28.2 pg (27.0-33.0); Mean Corpuscular Volume 82.4 fL (80.0-98.0); Mean Platelet Volume 10.9 fL (9.4-12.3); Monocytes Absolute Auto 0.7 X10*3/uL (0.1-1.2); Monocytes Percent Auto 6.2 % (2-11); Neutrophils Absolute Auto 9.7 x10*3/uL (2.0-8.3); Neutrophils Percent Auto 83.9 % (45-73); Platelet Count 297 X10*3/uL (160-400); Red Blood Count 5.46 X10*6/uL (4.20-5.50); Red Cell Distribution Width 13.7 % (11.0-16.0); White Blood Count 11.6 X10*3/uL (4.8-10.8)
[2024-06-03 12:22] LABS: IDNOW Serial# 08D9AD1C; Strep A Nucleic Acid Negative (Negative)
[2024-06-03 12:23] LABS: Appearance Urine Clear; Color Urine Straw; Glucose Urine UA Negative (Negative); Leukocyte Esterase Urine Negative (Negative); Nitrite Urine Negative (Negative); Specific Gravity - Urine 1.015 (1.005-1.025); UMIC TRIGGER UACC YES; Urine Blood Trace (Negative); Urine Ketones Negative (Negative); Urine Protein Negative (Neg-Trace)
[2024-06-03 12:36] LABS: Alanine Aminotransferase 10 U/L (0-31); Albumin Level 4.9 g/dL (3.5-5.0); Alkaline Phosphatase 80 U/L (39-117); Anion Gap 10 (12-20); Aspartate Amino Transferase 18 U/L (5-31); Bilirubin Total 0.7 mg/dL (0.0-1.0); Blood Urea Nitrogen 13 mg/dL (9-16); Calcium 9.7 mg/dL (8.4-10.2); Carbon Dioxide 29 mmol/L (22-29); Chloride 106 mmol/L (96-108); Estimated Glomerular Filt Rate > 60; Glucose Random 109 mg/dL (60-115); HCG Quantitative < 2 mIU/mL; Potassium 3.6 mmol/L (3.3-5.1); Sodium 141 mmol/L (135-145); Total Protein 8.5 g/dL (6.5-8.0)
[2024-06-03 12:42] LABS: Bacteria Urine Trace (None Seen); RBC Urine 0-2 /HPF (0-2); Squamous Epithelial Cell Urine 0-2 /HPF (0-2); WBC Urine 0-5 /HPF (0-5)
[2024-06-03 12:43] LABS: Hyaline Casts Urine 0-2 /LPF (0-2)
[2024-06-03 12:51] LABS: Influenza A PCR NEGATIVE (Negative); Influenza B PCR NEGATIVE (Negative); Resp Syncy Virus RNA Qual PCR NEGATIVE (Negative); SARS COV2 PCR INHOUSE NEGATIVE (Negative)
[2024-06-03] MEDS: 0.9 % Sodium Chloride 1,000 ML 999 ML IV (13:34)
[2024-06-03] MEDS: Metoclopramide HCl 10 MG/2 ML VIAL IVPUSH (13:34)
[2024-06-03] MEDS: diphenhydrAMINE HCL 50 MG/ML VIAL 25 MG IVPUSH (13:34)
[2024-06-03] MEDS: Ketorolac Tromethamine 15 MG/ML VIAL IVPUSH (13:34)
[2024-06-03 15:05] VITALS: BP 143/94
[2024-06-03 15:25] VITALS: BP 143/94; PULSE 78; RESP 18; TEMP 36.9; O2SAT 98
[2024-06-03 15:28] VITALS: BP 152/90; PULSE 76; RESP 17; TEMP 36.7; O2SAT 98
== END 2024-06-03 15:29 | disposition home or self-care (01) ==
PROVIDERS: Registered Nurse Emergency; Emergency Provider Emergency Medicine; PCP Physician Assistant
DX: G43.909 Migraine, unspecified, not intractable, without status migrainosus (principal); R42 Dizziness and giddiness; R11.2 Nausea with vomiting, unspecified; R00.1 Bradycardia, unspecified; Z03.818 Encounter for observation for suspected exposure to other biological agents ruled out; Z79.899 Other long term (current) drug therapy
CPT/HCPCS: 0241U; 70450; 80053; 81001; 83735; 84702; 85025; 87651; 93005; 96361; 96374; 96375; 99284; 99285; J1200; J1885; J2765

== ENCOUNTER 2024-06-08 13:44 | Outpatient (AMB) | payer OTHER, SELFPAY ==
[2024-06-08 13:49] VITALS: BP 132/86; PULSE 78; O2SAT 99; BMI 25.7
--- NOTE | 2024-06-08 13:49 | MHC.PC.OV ---
Vital Signs 06/08/24 13:49 Height 5 ft 4 in Weight 150 lb BMI 25.7 BP 132/86 Blood Pressure Location Lt brachial Position Sitting Pulse 78 Pulse Source Pulse Oximeter Pulse Oximetry (%) 99 Oxygen Delivery Method Room Air Intake Visit [place] [facility] [place] high BP [employer] Required: Yes [employer] Language: [place]an Accompanied by: Self / Same As Patient Allergies No Known Allergies Allergy (Verified 06/08/24 14:04) Medication List - Last Reconciled 06/08/24 by Jalen Meza PA-C levonorgestrel (Mirena) intrauterine ondansetron 4 mg PO Q8H PRN Tobacco use date assessed: 06/08/24 Dental Screening Dental Screen Date: 06/08/24 Did you have a dental visit in the last 12 months?: No Did you have a dental problem in the last 6 months where you did not have access to dental care?: No Was dental information given to patient?: Patient has dentist HPI [facility] [place] high BP HPI Details Patient is a 33-year-old female here today for an ER follow-up visit. Patient was seen at the ER on June 03 for acute migraine and feeling dizzy. Workup was essentially normal. She does have a migraine disease history. She was found to elevated blood pressures while in the ER in the setting of pain. She was given muscle relaxer to which she reports has been helpful. Today's blood pressure in office slightly elevated and we did discuss the possibility of starting blood pressure medication. She wonders her headaches are coming from a cervical spine issue in his interested in getting a cervical spine x-ray. [facility] Medical History Dysfunctional uterine bleeding Iron deficiency anemia Surgical History Hx of section Tubal ligation status Family History Maternal Grandfather Leukemia Maternal Uncle Diabetes Paternal Grandmother Lupus Social History Household Members: Spouse and Children Housing: Apartment Are you a primary critical care nurse practitioner to a significant other at home: No Do you presently have visiting nurse or other home services: No Alcohol intake: never Patient Tobacco Use Status: Never used Tobacco e-Cigarette/Vaping Use: Never Used service: No Current occupational status: employed Cognitive needs: No Hearing needs: No Vision needs: Yes (Pt wear glasses but have not seen eye doctor for three years. ) Female Reproductive History Menstrual Age of Menarche: 13 Questionnaire PHQ-9 Over the last 2 weeks, how often have you been bothered by any of the following problems? 1. Little interest or pleasure in doing things: not at all 2. Feeling down, depressed, or hopeless: not at all 3. Trouble falling or staying asleep, or sleeping too much: not at all 4. Feeling tired or having little energy: not at all 5. Poor appetite or overeating: not at all 6. Feeling bad about yourself - or that you are a failure or have let yourself or your family down: not at all 7. Trouble concentrating on things, such as reading the newspaper or watching television: not at all 8. Moving or speaking so slowly that other people could have noticed. Or the opposite - being so fidgety or restless that you have been moving around a lot more than usual: not at all 9. Thoughts that you would be better off or of hurting yourself in some way: not at all Total score: 0 Depression Screening Interpretation: Negative Depression Screening Done: Yes 74384 - PHQ-9 Billing: Yes Source: Developed by Drs. Rajesh Ceja, Connie Pérez, Ajay Desir and colleagues, with an educational rere from [employer]. Thrive Questionnaire Date Thrive assessed: 06/08/24 I am a: Patient What is your living situation today?: I have a steady place to live Within the past 12 months, did the food you bought not last and you didn't have the money to get more?: Never true Within the past 12 months, did you worry whether your food would run out before you got money to buy more?: Never true Do you have trouble paying for medicines?: No Do you have trouble getting transportation to medical appointments?: No Do you have trouble paying your heating and electricity bill?: No Do you have trouble taking care of your child, family member or friend?: No Do you have trouble with day-to-day activities such as bathing, preparing meals, shopping, managing finances, etc.?: No Are you currently unemployed and looking for a job?: No Are you interested in more education?: No Please select the resources that you would like help with: None Currently or been in a relationship where the following occur: No concerns reported THRIVE Score: 0 AUDIT C Alcohol Use Questionnaire (AUDIT-C) 1. How often do you have a drink containing alcohol?: 2-4 times a month 2. How many drinks containing alcohol do you have on a typical day when you are drinking?: 3 or 4 3. How often do you have six or more drinks on one occasion?: Never Total Score: 3 BROOK-7 AMB Questionnaire BROOK-7 Date BROOK - 7 assessed: 06/08/24 Feeling nervous, anxious, or on edge: 0 = Not at all Not being able to stop or control worryin = Not at all Worrying too much about different things: 0 = Not at all Trouble relaxin = Not at all Being so restless that it is hard to sit still: 0 = Not at all Becoming easily annoyed or irritable: 0 = Not at all Feeling afraid as if something awful might happen: 0 = Not at all Total BROOK-7 score (0-4 normal; 5-9 mild; 10-14 moderate; 15-21 severe): 0 Source: Developed by Drs. Rajesh Ceja, Connie Pérez, Ajay Desir and colleagues, with an educational rere from [employer]. BROOK-7 Assessment Billing BROOK-7 Assessment Tool: BROOK-7 Assessment 11251 Review of Systems Const Reports headache(s) Eyes Denies loss of vision ENT Denies vertigo, Denies dizziness, Reports headache(s), Reports neck pain and Denies sore throat Card Denies chest pain, Denies leg edema and Denies lightheadedness Resp Denies cough, Denies hemoptysis and Denies wheezing GI Denies abdominal pain, Denies melena, Denies constipation, Denies diarrhea and Denies vomiting Denies urinary frequency, Denies dysuria and Denies urinary urgency Musc Denies arthralgias, Denies joint swelling, Reports neck pain, Denies numbness and Denies tingling Neuro Denies Abnormal speech present, Denies behavioral changes, Denies vertigo, Denies dizziness, Reports headache(s), Denies loss of vision, Denies memory loss, Denies numbness and Denies tingling Psych Denies anxiety, Denies behavioral changes, Denies depression, Denies memory loss and Denies panic attacks Angelito/Lymph Denies easy bleeding and Denies easy bruising Aller/Immun Denies wheezing Physical exam (Primary Care) Vital Signs: Last Vital Signs Pulse 78 06/08/24 13:49 BP 132/86 06/08/24 13:49 Pulse Ox 99 06/08/24 13:49 Oxygen Delivery Method Room Air 06/08/24 13:49 BMI result Body Mass Index 25.7 Tobacco/Smoking Status: Tobacco use Status Tobacco use date assessed 06/08/24 06/08/24 14:00 Patient Tobacco Use Status Never used Tobacco 06/08/24 13:49 e-Cigarette/Vaping Use Never Used 06/08/24 13:49 PHQ-9: PHQ-9 Score PHQ-9: Total score 0 06/08/24 14:12 Depression Screening Interpretation: Negative Thrive Assessment: Date of Thrive Assessment Date Thrive assessed 06/08/24 06/08/24 14:00 Currently or been in a relationship where the following occur: No concerns reported Const General: healthy appearing, no acute distress, alert and awake Nutritional Appearance: well nourished Orientation/consciousness: oriented to person, oriented to place and oriented to time HENMT Ears: TM's normal bilaterally General nose exam: Normal nasal mucous membranes and turbinates present Eyes Conjunctivae: conjunctivae normal Sclerae: sclerae normal Pupils: Equal, round and reactive pupils present Neck Neck: Yes no lymphadenopathy and Yes no JVD Thyroid: Thyroid normal Carotids: no bruits Resp Effort & Inspection: normal respiratory effort and not tachypneic Auscultation: no crackles, no rales, no rhonchi and no wheezes Cardio Rate: regular rate Rhythm: regular rhythm Heart sounds: no murmurs and normal S1 and S2 GI Palpation (GI): Soft to palpation, nontender, no hepatomegaly and no splenomegaly Auscultation: normal bowel sounds Skin General skin exam: no rashes or lesions noted and dry skin Neuro General: oriented to person, oriented to place and oriented to time Cranial nerves: Yes Equal, round and reactive pupils present Speech: No Abnormal speech present Gait exam (Neuro): Normal gait present Motor exam (neuro): no tremor noted Extrem Right upper extremity: full ROM Left upper extremity: full ROM Right lower extremity: full ROM; no edema Left lower extremity: full ROM; no edema Psych Mental Status: mental status grossly normal Speech and movement: Normal speech and movement present Affect: normal affect Attitude: cooperative Thought process: Normal thought process present Assessment and Plan Assessment & Plan (1) Migraine: Code(s): G43.909 - Migraine, unspecified, not intractable, without status migrainosus Qualifiers: Intractability: not intractable Migraine type: unspecified Status migrainosus presence: without status migrainosus Qualified Code(s): G43.909 - Migraine, unspecified, not intractable, without status migrainosus Plan: Head CT while in the ER without any intracranial pathology. Will send for x-ray of cervical spine to see if she has arthritis in her neck that could be causing her migraines and hip pain. She reports muscle relaxer has been helpful in reducing her headaches though still has a low-grade headache. Today's blood pressure is slightly elevated in office. Will start low-dose calcium channel shahla for her blood pressure and to possibly help headaches. (2) HTN (hypertension): Code(s): I10 - Essential (primary) hypertension Qualifiers: Hypertension type: primary hypertension Qualified Code(s): I10 - Essential (primary) hypertension Plan: Noted to have slightly high blood pressure readings. Will supply patient with low-dose amlodipine. Will also supply patient with a blood pressure monitor kit script to monitor her blood pressure at home. Will start low-dose amlodipine for her blood pressure control.. Goal blood pressure to be below 140/90 (3) Cervical spine pain: Code(s): M54.2 - Cervicalgia Plan: As per HPI will send for x-ray of cervical spine to evaluate for any advanced arthritis or cervical disc disease that could be causing her migraines. Will consider physical therapy again Orders: Orders Microalbumin, Random (w Creat) 06/08/24 I10 - Essential (primary) hypertension Comprehensive Bath. Panel Fast 06/08/24 I10 - Essential (primary) hypertension XR cervical spine 4V 06/08/24 M54.2 - Cervicalgia Medications: New blood pressure monitor As directed 1 ea 0RF I10 - Essential (primary) hypertension amlodipine 2.5 mg PO DAILY 30 tabs 1RF 30 days I10 - Essential (primary) hypertension blood pressure monitor As directed 1 ea 0RF I10 - Essential (primary) hypertension Coding Level of Care Code Est Pt Level 4 (71155) Diagnoses Migraine G43.909 Intractability: not intractable Migraine type: unspecified Status migrainosus presence: without status migrainosus Primary hypertension I10 Hypertension type: primary hypertension Cervical spine pain M54.2 Additional Codes BROOK-7 Assessment Billing - BROOK-7 Assessment Tool: BROOK-7 Assessment [id number] ([id number])
== END 2024-06-08 15:59 | disposition home or self-care (01) ==
PROVIDERS: PCP Physician Assistant; Visit Provider Physician Assistant
DX: G43.909 Migraine, unspecified, not intractable, without status migrainosus (principal); I10 Essential (primary) hypertension; M54.2 Cervicalgia

== ENCOUNTER → 2024-06-08 13:44 | Outpatient (BNVA) | payer OTHER, SELFPAY | PROVIDERS: PCP Physician Assistant; Visit Provider Physician Assistant | DX: G43.909 Migraine, unspecified, not intractable, without status migrainosus (principal); I10 Essential (primary) hypertension; M54.2 Cervicalgia | CPT/HCPCS: 96127; 99212 ==

== ENCOUNTER 2024-07-01 09:25 | Outpatient (REF) | payer OTHER, SELFPAY ==
[2024-07-01 10:45] LABS: Appearance Urine Clear; Color Urine Yellow; Glucose Urine UA Negative (Negative); Leukocyte Esterase Urine Negative (Negative); Nitrite Urine Negative (Negative); PH 6.5 (5.0-9.0); Specific Gravity - Urine 1.025 (1.005-1.025); UMIC TRIGGER UACC YES; Urine Blood Trace (Negative); Urine Ketones Negative (Negative); Urine Protein Negative (Neg-Trace)
[2024-07-01 10:50] LABS: Bacteria Urine None Seen (None Seen); Hyaline Casts Urine 0-2 /LPF (0-2); RBC Urine 0-2 /HPF (0-2); Squamous Epithelial Cell Urine 0-2 /HPF (0-2); WBC Urine 0-5 /HPF (0-5)
[2024-07-01 11:21] LABS: Alanine Aminotransferase 17 U/L (0-31); Albumin Level 4.5 g/dL (3.5-5.0); Alkaline Phosphatase 76 U/L (39-117); Anion Gap 9 (12-20); Aspartate Amino Transferase 19 U/L (5-31); Bilirubin Total 0.4 mg/dL (0.0-1.0); Blood Urea Nitrogen 13 mg/dL (9-16); Calcium 9.8 mg/dL (8.4-10.2); Carbon Dioxide 29 mmol/L (22-29); Chloride 107 mmol/L (96-108); Estimated Glomerular Filt Rate > 60; Glucose Fasting 99 mg/dL (60-99); Potassium 4.8 mmol/L (3.3-5.1); Sodium 140 mmol/L (135-145); Total Protein 7.8 g/dL (6.5-8.0)
[2024-07-01 11:32] LABS: Creatinine Urine 159.33 mg/dL; Microalbum/Creatinine Ratio Ur 6.2 ug/mg cr (<30)
== END 2024-07-01 09:26 | disposition home or self-care (01) ==
LOC: HO.XRAY 09:25
PROVIDERS: PCP Physician Assistant; Visit Provider Physician Assistant
DX: M54.2 Cervicalgia (principal); M54.50 Low back pain, unspecified; I10 Essential (primary) hypertension
CPT/HCPCS: 36415; 72050; 72110; 80053; 81001; 82043; 82570

== ENCOUNTER 2024-07-23 13:49 | Outpatient (AMB) | payer OTHER, SELFPAY ==
--- NOTE | 2024-07-23 13:52 | A.OFFPC_ITS ---
Vital Signs 07/23/24 14:02 Height 5 ft 4 in Weight 149 lb BMI 25.6 BP 122/86 Blood Pressure Location Lt brachial Position Sitting Pulse 70 Pulse Source Pulse Oximeter Pulse Oximetry (%) 99 Oxygen Delivery Method Room Air Intake Visit Reasons: ANNUAL PE- NEEDS PHQ-9 Records Supervisor Required: No Accompanied by: Self / Same As Patient Allergies No Known Allergies Allergy (Verified 07/23/24 14:03) Medication List - Last Reconciled 07/23/24 by Jalen Meza PA-C amlodipine 2.5 mg PO DAILY 30 days blood pressure monitor As directed levonorgestrel (Mirena) intrauterine ondansetron 4 mg PO Q8H PRN Tobacco use date assessed: 06/08/24 Dental Screening Dental Screen Date: 06/08/24 HPI ANNUAL PE- NEEDS PHQ-9 HPI Details Patient is a 33-year-old female here today for a routine annual phys ical. Patient has a past medical history significant for hypertension, migraines and iron-deficiency anemia. Concern--> she reports she has been having mood swings as of late that has been disrupting her life. She is interested medication in cognitive behavioral therapy to help her. She is willing to start Seroquel 25 mg at night to help her sleep and try to regulate her mood. .. :Hypertension: Patient has been started on amlodipine 5 mg and blood pressure has been much better controlled. Headaches have been less frequent. . 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 Needs tetanus Laboratory Tests 06/03/24 07/01/24 07/01/24 12:09 09:50 09:55 WBC 11.6 H Creatinine 0.73 Fasting Glucose 99 Urine Microalbumin 10.0 PFSH Medical History Dysfunctional uterine bleeding Iron deficiency anemia Surgical History Hx of section Tubal ligation status Family History (Updated 07/23/24 @ 14:09 by Jalen Meza PA-C) Maternal Grandfather Leukemia Maternal Uncle Diabetes Paternal Grandmother Lupus Father Heart attack, Onset Age: 55 Social History (Updated 07/23/24 @ 14:10 by Jalen Meza PA-C) Household Members: Spouse and Children Housing: Apartment Are you a primary client care consultant to a significant other at home: No Do you presently have visiting nurse or other home services: No Alcohol intake: current Alcohol intake frequency: a few times a month Patient Tobacco Use Status: Never used Tobacco e-Cigarette/Vaping Use: Never Used Substance Use Type: Marijuana service: No Current occupational status: employed 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 ) Female Reproductive History Menstrual Age of Menarche: 13 Questionnaire PHQ-9 Over the last 2 weeks, how often have you been bothered by any of the following problems? 1. Little interest or pleasure in doing things: not at all 2. Feeling down, depressed, or hopeless: not at all 3. Trouble falling or staying asleep, or sleeping too much: not at all 4. Feeling tired or having little energy: not at all 5. Poor appetite or overeating: not at all 6. Feeling bad about yourself - or that you are a failure or have let yourself or your family down: not at all 7. Trouble concentrating on things, such as reading the newspaper or watching television: not at all 8. Moving or speaking so slowly that other people could have noticed. Or the opposite - being so fidgety or restless that you have been moving around a lot more than usual: not at all 9. Thoughts that you would be better off or of hurting yourself in some way: not at all Total score: 0 Depression Screening Interpretation: Negative Depression Screening Done: Yes 46005 - PHQ-9 Billing: Yes Source: Developed by Drs. Rajesh Ceja, Connie Pérez, Ajay Desir and colleagues, with an educational rere from [employer]. Thrive Questionnaire Date Thrive assessed: 07/23/24 I am a: Patient What is your living situation today?: I have a steady place to live Within the past 12 months, did the food you bought not last and you didn't have the money to get more?: I choose not to answer this question Within the past 12 months, did you worry whether your food would run out before you got money to buy more?: I choose not to answer this question Do you have trouble paying for medicines?: I choose not to answer this question Do you have trouble getting transportation to medical appointments?: I choose not to answer this question Do you have trouble paying your heating and electricity bill?: I choose not to answer this question Do you have trouble taking care of your child, family member or friend?: I choose not to answer this question Do you have trouble with day-to-day activities such as bathing, preparing meals, shopping, managing finances, etc.?: I choose not to answer this question Are you currently unemployed and looking for a job?: I choose not to answer this question Are you interested in more education?: I choose not to answer this question Please select the resources that you would like help with: None Currently or been in a relationship where the following occur: I choose not to answer THRIVE Score: 0 AUDIT C Alcohol Use Questionnaire (AUDIT-C) 1. How often do you have a drink containing alcohol?: 2-4 times a month 2. How many drinks containing alcohol do you have on a typical day when you are drinking?: 3 or 4 3. How often do you have six or more drinks on one occasion?: Monthly Total Score: 5 BROOK-7 AMB Questionnaire BROOK-7 Date BROOK - 7 assessed: 06/08/24 Feeling nervous, anxious, or on edge: 0 = Not at all Not being able to stop or control worryin = Not at all Worrying too much about different things: 0 = Not at all Trouble relaxin = Nearly every day Being so restless that it is hard to sit still: 0 = Not at all Becoming easily annoyed or irritable: 3 = Nearly every day Feeling afraid as if something awful might happen: 0 = Not at all Total BROOK-7 score (0-4 normal; 5-9 mild; 10-14 moderate; 15-21 severe): 6 Source: Developed by Drs. Rajesh Ceja, Connie Pérez, Ajay Desir and colleagues, with an educational rere from [employer]. BROOK-7 Assessment Billing BROOK-7 Assessment Tool: BROOK-7 Assessment 89876 Review of Systems Const Denies body aches, Denies chills, Denies excessive sweating, Denies fatigue, Denies fever(s) and Denies headache(s) Eyes Denies blurry vision ENT Denies dysphagia, Denies vertigo, Denies dizziness, Denies headache(s), Denies hearing loss and Denies tinnitus Card Denies chest pain, Denies chest pain with activity, Denies syncope, Denies irregular heart rhythm and Denies dyspnea Resp Denies chest congestion, Denies cough, Denies hemoptysis, Denies dyspnea and Denies wheezing GI Denies abdominal pain, Denies melena, Denies hematochezia, Denies coffee ground emesis, Denies dysphagia, Denies diarrhea, Denies nausea and Denies vomiting Denies urinary frequency, Denies dysuria, Denies urinary hesitancy and Denies urinary urgency Musc Denies arthralgias, Denies limited range of motion, Denies muscle cramps and Denies muscle weakness Skin/Breast Denies rash and Denies skin ulcer Neuro Denies Abnormal speech present, Denies confusion, Denies vertigo, Denies dizziness, Denies syncope, Denies headache(s), Denies memory loss and Denies seizure-like activity Psych Denies anxiety, Denies confusion, Denies depression, Denies memory loss, Denies panic attacks and Denies paranoia Endo Denies excessive sweating, Denies fatigue, Denies flushing, Denies polydipsia and Denies polyuria Aller/Immun Denies wheezing Physical exam (Primary Care) Vital Signs: Last Vital Signs Pulse 70 07/23/24 14:02 BP 122/86 07/23/24 14:02 Pulse Ox 99 07/23/24 14:02 Oxygen Delivery Method Room Air 07/23/24 14:02 BMI result Body Mass Index 25.6 Tobacco/Smoking Status: Tobacco use Status Tobacco use date assessed 06/08/24 07/23/24 13:52 Patient Tobacco Use Status Never used Tobacco 07/23/24 13:52 e-Cigarette/Vaping Use Never Used 07/23/24 13:52 PHQ-9: PHQ-9 Score PHQ-9: Total score 0 07/23/24 13:53 Depression Screening Interpretation: Negative Thrive Assessment: Date of Thrive Assessment Date Thrive assessed 07/23/24 07/23/24 13:53 Currently or been in a relationship where the following occur: I choose not to answer Const General: cooperative, comfortable, no acute distress, alert and awake; No confusion Orientation/consciousness: oriented to person, oriented to place, patient oriented x3 and No confusion HENDC Head: Yes normocephalic Ears: external ears normal and TM's normal bilaterally Face and sinus: No sinus tenderness Mouth: Normal oral and palatal mucosa present and tongue normal Teeth and gingiva: dentition normal and gingiva normal Throat: Yes posterior oropharynx normal, Yes tonsils normal and Yes uvula midline Eyes Conjunctivae: conjunctivae normal Sclerae: sclerae normal Pupils: Equal, round and reactive pupils present EOM: EOMs intact bilaterally Direct Ophthalmoscopy: No no photophobia Neck Neck: Yes no lymphadenopathy, No tender and Yes no JVD Thyroid: Thyroid normal Carotids: no bruits Chest Chest palpation & inspection: no tenderness Resp Effort & Inspection: normal respiratory effort, no audible wheezes, not labored and no stridor Auscultation: no crackles, no rales, no rhonchi and no wheezes Cardio Jugular venous distension: no JVD Rate: regular rate, not bradycardic and not tachycardic Rhythm: regular rhythm Bruits: no carotid bruits Peripheral pulses: Peripheral pulses 2+ throughout GI Inspection: Yes normal to inspection, No abdominal wall ecchymosis and No visible herniation Palpation (GI): Soft to palpation, nontender, no guarding, not rigid and No hepatosplenomegaly present Auscultation: normoactive bowel sounds General: Yes no CVA tenderness Back/Spine/Pelvis Back: no CVA tenderness and No back tenderness Cervical Spine: cervical ROM normal Thoracic/Lumbar Spine: thoracic and lumbar spine normal to inspection, straight leg raise negative bilaterally, No thoraco-lumbar ROM limited and No lumbar spinal tenderness Skin Lesions: no lesions Rashes: no rashes Wounds: no wounds Neuro General: oriented to person, oriented to place, patient oriented x3, CN's II-XI intact bilaterally and No confusion Cranial nerves: Yes Equal, round and reactive pupils present and Yes Normal accommodation reflex present Cognition (Neuro): normal cognition Speech: No Abnormal speech present Gait exam (Neuro): Normal gait present Motor exam (neuro): 5/5 motor strength present throughout Extrem Right upper extremity: full ROM; no cyanosis Left upper extremity: full ROM; no cyanosis Right lower extremity: no edema Left lower extremity: no edema Psych Appearance: grossly normal Mental Status: mental status grossly normal Affect: normal affect Attitude: cooperative Thought process: Normal thought process present Office Procedures Flu Questionnaire Does the patient have a severe egg allergy?: No Does the patient have severe life threatening allergies?: No Does the patient have a fever or illness today?: No Has the patient ever had Guillain-[place] Syndrome?: No Has the patient ever had any past reaction to a flu shot?: No Immunizations Fluarix Triv [id number] (PF) 45 mcg (15 mcg x 3)/0.5 mL IM syringe Performing Provider: Jalen Meza PA-C 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 0.5 mL IM Left Deltoid 0.5 mL [id number] 03/15/25 [id number] [employer] VIS Given Date VIS Provided VIS Publication Date 07/23/24 Single Vaccine 21 Eligibility Eligibility Date Funding Source Not [facility] Eligible 07/23/24 Private Coding Level of Care Code Est Pt Level 4 (40813) Diagnoses Annual physical exam Z00.00 Primary hypertension I10 Hypertension type: primary hypertension Mood disorder F39 Additional Codes PHQ-9 - 61154 - PHQ-9 Billing: Yes ([id number]) BROOK-7 Assessment Billing - BROOK-7 Assessment Tool: BROOK-7 Assessment 52744 ([id number]) Assessment & Plan Assessment & Plan (1) Annual physical exam: Code(s): Z00.00 - Encounter for general adult medical examination without abnormal findings Category: Medical Plan: As per HPI (2) HTN (hypertension): Code(s): I10 - Essential (primary) hypertension Category: Medical Qualifiers: Hypertension type: primary hypertension Qualified Code(s): I10 - Essential (primary) hypertension Plan: Patient's blood pressure acceptable today in office. Will continue her on current dose of amlodipine with goal blood pressure to remain below 140/90 (3) Mood disorder: Code(s): F39 - Unspecified mood [affective] disorder Category: Medical Plan: As per HPI. Patient does seem to have a mood disorder to which she is interested in starting medication for. She is also willing to speak with a mental health therapist about her mood swings. Orders: Orders Microalbumin, Random (w Creat) Today I10 - Essential (primary) hypertension Complete Blood Count no Diff Today I10 - Essential (primary) hypertension Comprehensive [place]. Panel Fast Today I10 - Essential (primary) hypertension Influenza [id number] Immunization Today Z23 - Encounter for immunization Referrals Counseling Referral F39 - Unspecified mood [affective] disorder Medications: New quetiapine (Seroquel) 25 mg PO BEDTIME 30 days 30 tabs 3RF F39 - Unspecified mood [affective] disorder Changed From amlodipine 2.5 mg PO DAILY 30 days 30 tabs 1RF I10 - Essential (primary) hypertension To amlodipine 2.5 mg PO DAILY 90 days 90 tabs 1RF I10 - Essential (primary) hypertension
[2024-07-23 14:02] VITALS: BP 122/86; PULSE 70; O2SAT 99; BMI 25.6
== END 2024-07-23 15:43 | disposition home or self-care (01) ==
LOC: HO.HMCH 13:50
PROVIDERS: PCP Physician Assistant; Visit Provider Physician Assistant
DX: Z00.00 Encounter for general adult medical examination without abnormal findings (principal); I10 Essential (primary) hypertension; F39 Unspecified mood [affective] disorder; Z23 Encounter for immunization

== ENCOUNTER → 2024-07-23 13:49 | Outpatient (BNVA) | payer OTHER, SELFPAY | PROVIDERS: PCP Physician Assistant; Visit Provider Physician Assistant | DX: Z00.00 Encounter for general adult medical examination without abnormal findings (principal); Z23 Encounter for immunization; I10 Essential (primary) hypertension; F39 Unspecified mood [affective] disorder | CPT/HCPCS: 90471; 90472; 90656; 90715; 96127; 99212 ==

== ENCOUNTER 2024-12-31 09:30 | Emergency (ER) | payer OTHER, SELFPAY ==
--- NOTE | ~2024-12-31 | XR_ITS ---
EXAMINATION: XR CHEST 2 VIEWS HISTORY: pain COMPARISON: Comparison is made with the prior examination dated 07/04/2021. FINDINGS: PA and lateral views of the chest are submitted. The lungs are expanded and clear. There is no pleural effusion, pneumothorax, or pulmonary vascular congestion. The heart is normal in size. The bones are intact. XR/XR chest 2V IMPRESSION: No acute cardiopulmonary abnormality. Electronically signed by: Rajesh Perdomo MD 12/31/2024 10:45 AM EDT
--- NOTE | 2024-12-31 09:34 | ECG_ITS ---
Test Reason : chest pain Blood Pressure : */* mmHG Vent. Rate : 67 BPM Atrial Rate : 67 BPM P-R Int : 166 ms QRS Dur : 88 ms QT Int : 380 ms P-R-T Axes : 26 42 25 degrees QTcB Int : 401 ms Normal sinus rhythm with sinus arrhythmia Normal ECG When compared with ECG of 03-Jun-2024 11:45, No significant change was found Referred By: Generic ED Physician Electronically Signed By: HONEY CURRIE MD
[2024-12-31 09:46] VITALS: BP 122/88; PULSE 73; RESP 16; TEMP 36.8; O2SAT 97; BMI 25.6
--- NOTE | 2024-12-31 10:14 | ED.URI ---
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 She states the congestion and tightness in her chest is affecting her sleep and is worsening in severity since last night prompting her to seek care today. She states she experienced some night sweats over her chest and neck area last night but did not check her temperature for fever. She reports using afrin for nasal congestion. She reports one of her family members at home is sick with the same symptoms. She denies cough, sputum, chest pain, SOB, nausea, vomiting, diarrhea. MD elicited complaint: nasal congestion and other (chest tightness ) Onset (ago): day(s) (2) Consistency: constant Severity: moderate Able to tolerate fluids by mouth: Yes Exacerbating factors: nothing Relieving factors: nothing Context: sick contacts (family member at home with same symptoms) Associated symptoms: nasal congestion and other (chest tightness ) Treatments prior to arrival: cold medicine and other (afrin ) Related Data Home Medications ?Medication ?Instructions ?Recorded ?Confirmed levonorgestrel 21 mcg/24 hr (up to intrauterine 11/28/23 07/23/24 8 years) 52 mg intrauterine device (Mirena) Previous Rx's ?Medication ?Instructions ?Recorded ondansetron 4 mg disintegrating 4 mg PO Q8H PRN nausea and 06/03/24 tablet vomiting #20 tabs blood pressure monitor #1 ea 06/08/24 amlodipine 2.5 mg tablet 2.5 mg PO DAILY 90 days #90 tabs 07/23/24 quetiapine 25 mg tablet (Seroquel) 25 mg PO BEDTIME 30 days #30 tabs 07/23/24 Allergies Allergy/AdvReac Type Severity Reaction Status Date / Time No Known Allergies Allergy Verified 12/31/24 09:48 Review of Systems Review of Systems: Constitutional : No Fever, No Chills, No Fatigue, pos night sweats ENT/Mouth : No sore throat, No Rhinorrhea, pos congestion Eyes: No Eye Pain, No Swelling, No Redness Cardiovascular : No Chest Pain, No SOB, No Dyspnea on Exertion Respiratory : No Cough, No Sputum Gastrointestinal : No Nausea, No Vomiting, No Diarrhea, No abdominal Pain Genitourinary : No Dysuria, No Urinary Frequency, No Hematuria, Musculoskeletal : No joint pain, No Myalgias, No Joint Swelling Skin : No Skin Lesions, No rash Neuro : No Weakness, No Numbness, No Dizziness, No Headache Psych : No Anxiety/Panic, No Depression Heme/Lymph: No Bruising, No Bleeding,No Lymphadenopathy Endocrine : No Polyuria, No Polydipsia All other systems reviewed and are negative Yes all other systems are reviewed and are negative [facility] Past Medical History Attestation statement: The following information was validated with the patient. Medical History Dysfunctional uterine bleeding Iron deficiency anemia Surgical History Hx of section Tubal ligation status Family History Family History Maternal Grandfather Leukemia Maternal Uncle Diabetes Paternal Grandmother Lupus Father Heart attack, Onset Age: 55 Social History Social History Household Members: Spouse and Children Housing: Apartment Are you a primary patient care technician instructor to a significant other at home: No Do you presently have visiting nurse or other home services: No Alcohol intake: current Alcohol intake frequency: a few times a month Patient Tobacco Use Status: Never used Tobacco e-Cigarette/Vaping Use: Never Used Substance Use Type: Marijuana Advance Directives: No Advance Directives Information Provided: No service: No Current occupational status: employed 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 ) Physical Exam Vital Signs: Vital Signs: Last Vital Signs Temp 98.0 F 12/31/24 10:27 Pulse 74 12/31/24 10:27 Resp 20 12/31/24 10:27 BP 134/89 12/31/24 10:27 Pulse Ox 99 12/31/24 10:27 O2 Del Method Room Air 12/31/24 10:27 BMI result Body Mass Index 25.6 Appearance: Alert. Oriented X3. No acute distress. Eyes: Pupils equal, round and reactive to light. ENT: Pharynx normal. Neck: Normal inspection. Neck supple. CVS: Normal heart rate and rhythm. Pulses normal. Respiratory: No respiratory distress. Breath sounds normal. Nasal congestion noted Abdomen: Soft and nontender. Skin: Skin warm and dry. Normal skin color. Normal skin turgor. Extremities: No lower extremity edema. No calf ttp Neuro: Oriented X 3. No motor deficit. No sensory deficit. CN2-12 intact Medical Decision Making Medical Decision Making [facility] Narrative: 34 yo female with PMH of HTN, migraines, mood disorder, anemia, ovarian cysts here with c/o congestion and chest tightness for 2 days. She states the congestion and tightness in her chest is affecting her sleep and is worsening in severity since last night prompting her to seek care today. She states she experienced some night sweats over her chest and neck area last night but did not check her temperature for fever. She reports using afrin for nasal congestion. She reports one of her family members at home is sick with the same symptoms. She denies cough, sputum, chest pain, SOB, nausea, vomiting, diarrhea. Patients vital signs are stable without evidence of fever. She is in no acute distress and is non-toxic appearing. Patient was counseled to discontinue use of afrin as this can cause rebound congestion. EKG showed no signs ST elevation/depressions or changes in T waves, not concerning of ACS. Chest Xray ordered to observe for any signs of inflammation or infection due to chest tightness. Viral swabs of COVID/flu/RSV to observe for viral illness. Patient has sick contact at home with same symptoms she is experience, highly likely this is viral in etiology. Differential Diagnosis Differential Diagnoses: The differential diagnosis associated with the presentation includes COVID/flu/RSV, viral illness, pneumonia, Admission/Observation Consideration of admission/observation: Escalation of care including admission/observation considered no toxic no distress mild viral syndrome Lab Data [facility] Lab Attestation statement: I reviewed the patient's lab results. Labs: Lab Results 12/31/24 Range/Units 10:26 Influenza Type A (PCR) NEGATIVE (Negative) Influenza Type B (PCR) NEGATIVE (Negative) RSV RNA Qual (PCR) NEGATIVE (Negative) SARS-CoV-2 RNA (RT-PCR) NEGATIVE (Negative) Independent Interpretation I performed an independent interpretation of an: EKG and Plain X-Ray (normal ) Interpretation: Rate: 67 Rhythm: NSR [place]: normal Normal P waves. Normal SHADY. Normal QRS complex. ST T wave : normal no HAMZAH qTC: 401 prior studies: no acute ischemia The study has been interpreted contemporaneously by me. . Radiology Impression Discussion of test interpretation with radiology: I have reviewed the radiologist's reading. External Record Review External record reviewed: Outpatient record Chronic Conditions Patient?s care impacted by: Other Discharge Plan Discharge Clinical Impression: Viral illness Patient Disposition: Home, Self-Care Instructions: Viral Syndrome (ED) Additional Instructions: You were evaluated in the ED today for congestion and chest tightness. Your Xray was normal. Your COVID/flu/RSV swabs were negative. Although these were negative, there are many different viruses and your symptoms are likely to be caused by a virus. You can alternate Motrin/Tylenol every 4 hours for pain control. Please discontinue use of afrin as this can cause rebound congestion and make your congestion worse over time. Stay hydrated by getting plenty of fluids. You can also use mucinex over the counter for relief. Please return to the ED if you have worsening symptoms, difficulty breathing, Fever over 100.4 or any other symptoms or concerns. Prescriptions: No Action ondansetron 4 mg tablet,disintegrating 4 mg PO Q8H PRN (Reason: nausea and vomiting) Qty: 20 0RF Mirena 21 mcg/24 hours (8 yrs) 52 mg intrauterine device intrauterine amlodipine 2.5 mg tablet 2.5 mg PO DAILY 90 Days Qty: 90 1RF quetiapine [Seroquel] 25 mg tablet 25 mg PO BEDTIME 30 Days Qty: 30 3RF ([facility]) blood pressure monitor Kit See Rx Instructions .Route Qty: 1 0RF Rx Instructions: As directed Stand Alone Forms: Work/School Release Print Language: Portuguese
[2024-12-31 10:27] VITALS: BP 134/89; PULSE 74; RESP 20; TEMP 36.7; O2SAT 99
[2024-12-31 11:25] LABS: Influenza A PCR NEGATIVE (Negative); Influenza B PCR NEGATIVE (Negative); Resp Syncy Virus RNA Qual PCR NEGATIVE (Negative); SARS COV2 PCR INHOUSE NEGATIVE (Negative)
== END 2024-12-31 11:57 | disposition home or self-care (01) ==
PROVIDERS: Emergency Provider Emergency Medicine; PCP Physician Assistant
DX: B34.9 Viral infection, unspecified (principal); R07.9 Chest pain, unspecified; Z03.818 Encounter for observation for suspected exposure to other biological agents ruled out; F12.90 Cannabis use, unspecified, uncomplicated
CPT/HCPCS: 0241U; 71046; 93005; 99283

== ENCOUNTER → 2024-12-31 09:34 | Outpatient (BNV) | payer OTHER, SELFPAY | PROVIDERS: Emergency Provider Emergency Medicine; PCP Physician Assistant; Visit Provider Internal Medicine Cardiovascular Disease | DX: R07.9 Chest pain, unspecified (principal) | CPT/HCPCS: 93010 ==

== ENCOUNTER → 2024-12-31 10:19 | Outpatient (BNV) | payer OTHER, SELFPAY | PROVIDERS: Emergency Provider Emergency Medicine; PCP Physician Assistant; Visit Provider Radiology Diagnostic Radiology | DX: R07.9 Chest pain, unspecified (principal) | CPT/HCPCS: 71046 ==

== ENCOUNTER 2025-02-23 10:28 | Outpatient (AMB) | payer OTHER, SELFPAY ==
--- NOTE | 2025-02-23 10:30 | AM.OFFWIN_ITS ---
Intake Vital Signs 02/23/25 10:32 Height 5 ft 4 in Weight 146 lb BMI 25.1 BP 116/80 Blood Pressure Location Rt brachial Position Sitting Pulse 70 Pulse Source Pulse Oximeter Pulse Oximetry (%) 100 Oxygen Delivery Method Room Air Intake Visit Reasons: EP-head and neck pressure, dizziness Intake Note: Patient here for neck and head pressure,dizziness and nausea which has been an ongoing issue but has worsened over the past couple of weeks. head tenderness. Patient Tobacco Use Status: Never used Tobacco Engineering Surveyor Required: Yes Engineering Surveyor Language: [place] Citizen Information Interpreted: non-clinical & clinical Allergies No Known Allergies Allergy (Verified 02/23/25 10:34) Do you need a note to return to daycare/school/sports/work: Yes HPI HPI Comments History of Present Illness Details comb tender used for this visit. Patient is a 34-year-old female with a past medical history of hypertension, migraines, iron-deficiency anemia, GERD, complaining of pressure in the back of her head that starts in her neck and goes to the top of her head. She tells me she has had this problem before and has tried physical therapy but not did not complete the physical therapy course so she did not feel like it was helping and is not interested in doing it again. She tells me she has migraines associated with the pain which includes light sensitivity and nausea and vomiting. She notices when her pain comes that her blood pressure is elevated slightly. She has tried taking tramadol and Benadryl and thinks the Benadryl helps but she thinks it is only because it makes her tired and makes her fall asleep. She tells me the tramadol has not worked. 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 She states the pain is worse with movement and it feels very tight in her neck and shoulders. She states that her doctor has given her medications but she is not sure if it was a muscle relaxer she tells me that was just a little white pill but it did not help. She has also tried a leave and Motrin with no relief. She has had a brain MRI in January of 2022, she also had cervical spine x-ray in June of [address] in May of 2024, all of which were negative for any acute pathologies. [facility] Medical History Dysfunctional uterine bleeding Iron deficiency anemia Surgical History Hx of section Tubal ligation status Family History Maternal Grandfather Leukemia Maternal Uncle Diabetes Paternal Grandmother Lupus Father Heart attack, Onset Age: 55 Social History Household Members: Spouse and Children Housing: Apartment Are you a primary intensive care specialist to a significant other at home: No Do you presently have visiting nurse or other home services: No Alcohol intake: current Alcohol intake frequency: a few times a month Patient Tobacco Use Status: Never used Tobacco e-Cigarette/Vaping Use: Never Used Substance Use Type: Marijuana service: No Current occupational status: employed 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 ) Female Reproductive History Menstrual Age of Menarche: 13 Review of Systems Const All systems reviewed & are unremarkable except as noted in HPI and below Physical Exam Vital Signs: Last Vital Signs Pulse 70 02/23/25 10:32 BP 116/80 02/23/25 10:32 Pulse Ox 100 02/23/25 10:32 Oxygen Delivery Method Room Air 02/23/25 10:32 BMI result Body Mass Index 25.1 Const General: cooperative, healthy appearing and comfortable Orientation/consciousness: patient oriented x3 HEENT Head: Yes normal to inspection and Yes normocephalic General nose exam: Normal external nose present Face and sinus: Yes normal facial exam Eyes General: appearance normal, both eyes and all related structures Resp Effort & Inspection: normal respiratory effort and able to speak in complete sentences General: Yes no CVA tenderness Back/Spine/Pelvis Back: no CVA tenderness Cervical Spine: normal cervical lordosis, cervical ROM normal, cervical spasm and No Cervical spine tenderness Thoracic/Lumbar Spine: thoracic and lumbar spine normal to inspection, thoraco- lumbar ROM normal, No paraspinal muscle tenderness, No thoracic spinal tenderness and No lumbar spinal tenderness Neuro General: patient oriented x3 Extrem Other: Straight leg raise test negative on right; Straight leg raise test negative on left; Reflexes normal ankle and knee bilaterally; motor strength normal bilaterally Assessment & Plan Assessment & Plan (1) Cervicalgia: Code(s): M54.2 - Cervicalgia Plan: After a very long discussion, physical exam was unremarkable, we decided to do a trial of 3 days of around the clock muscle relaxer with diclofenac, then she will take it as needed. She likely has an element of arthritis from her years of dance. She was also agreeable to physical therapy. She was advised not to take the muscle relaxer and drive a car or drink alcohol. (2) Cervical paraspinal muscle spasm: Code(s): M62.838 - Other muscle spasm Plan: See above Orders: Orders PT Evaluation and Treatment Today M54.2 - Cervicalgia, M62.838 - Other muscle spasm Medications: New cyclobenzaprine 10 mg (2 x 5 mg) PO Q8H PRN 20 tabs 0RF Muscle Spasm diclofenac sodium 50 mg PO Q12H PRN 20 tabs 0RF pain Coding Level of Care Code Est Pt Level 4 (84392) Diagnoses Cervicalgia M54.2 Cervical paraspinal muscle spasm M62.838
[2025-02-23 10:32] VITALS: BP 116/80; PULSE 70; O2SAT 100; BMI 25.1
== END 2025-02-23 11:09 | disposition home or self-care (01) ==
PROVIDERS: PCP Physician Assistant; Visit Provider Physician Assistant
DX: M54.2 Cervicalgia (principal); M62.838 Other muscle spasm

== ENCOUNTER → 2025-02-23 10:28 | Outpatient (BNVA) | payer OTHER, SELFPAY | PROVIDERS: PCP Physician Assistant; Visit Provider Physician Assistant | DX: M54.2 Cervicalgia (principal); M62.838 Other muscle spasm | CPT/HCPCS: 99212 ==